=== PATIENT | female | born 1970 | race Caucasian/White ===

== ENCOUNTER 2020-07-01 13:05 | Emergency (ER) | payer MEDICAID, SELFPAY ==
--- NOTE | ~2020-07-01 | XR_ITS ---
EXAMINATION: XR CHEST CLINICAL INFORMATION: Coughing up green phlegm COMPARISON: Chest 06/01/2013 TECHNIQUE: Frontal view of the chest was obtained. FINDINGS: No significant abnormality is noted involving the heart, lungs, mediastinum, bony thorax or soft tissues. XR/XR chest 1V IMPRESSION: Unremarkable chest examination.
[2020-07-01 13:15] VITALS: BP 171/88; PULSE 85; RESP 17; TEMP 36.6; O2SAT 97; BMI 27.3
--- NOTE | 2020-07-01 13:44 | ED.GENADULT ---
HPI - General Adult General Chief complaint: General Medical Stated complaint: congested, hot flashes Time Seen by Provider: 07/01/20 15:13 Source: patient Mode of arrival: ambulatory Limitations: no limitations History of Present Illness HPI narrative: Patient presents to ED for 3 days of coughing with green phlegm and hot and cold sensation flashes. Patient denies any chest pain or shortness of breath. Patient denies any swelling of lower extremities, calf pain, coughing up blood, recent long travel, or recent surgery. Related Data Previous Rx's Medication Instructions Recorded azithromycin See Rx Instructions .ROUTE 07/01/20 .COMPLEX #6 tab Allergies Allergy/AdvReac Type Severity Reaction Status Date / Time acetaminophen [From VICODIN] Allergy Severe TRIGGERS Unverified 11/30/19 17:50 MIGRAINES & UPSET STOMACH hydrocodone [From VICODIN] Allergy Severe TRIGGERS Unverified 11/30/19 17:50 MIGRAINES & UPSET STOMACH oxycodone [From PERCOCET] Allergy Intermediate ITCHING Unverified 11/30/19 17:50 Hydrocodone-Ibuprofen Allergy Unknown Uncoded 04/29/16 00:00 Vicodin Allergy Unknown Uncoded 06/28/19 00:00 Review of Systems Review of Systems: Yes all other systems are reviewed and are negative Constitutional: Constitutional: Reports as per HPI, Reports no additional constitutional complaints and Denies snoring Comments: Hot and cold flashes Eyes: Eyes: Reports as per HPI and Reports no additional eye complaints ENT: Reports system reviewed and no additional complaints, except as documented and Reports as per HPI Cardiovascular: Cardiovascular: Reports as per HPI, Reports no additional cardiovascular complaints and Denies dyspnea Respiratory: Respiratory: Reports as per HPI, Reports no additional respiratory complaints, Reports cough, Denies excessive phlegm production, Denies pain on inspiration, Denies dyspnea, Denies snoring and Denies wheezing Gastrointestinal: Gastrointestinal: Reports as per HPI and Reports no additional gastrointestinal complaints Genitourinary: Genitourinary: Reports no additional female genitourinary complaints and Reports as per HPI Musculoskeletal: Musculoskeletal: Reports no additional musculoskeletal complaints and Reports as per HPI Neurologic: Reports system reviewed and no additional complaints, except as documented and Reports as per HPI Psychiatric: Psychiatric: Reports no additional psychiatric complaints and Reports as per HPI Allergic/Immunologic: Allergic/Immunologic: Denies wheezing PMFSH Past Medical History Medical History (Updated 07/01/20 @ 15:31 by ALEXANDRA Ayoub) COPD (chronic obstructive pulmonary disease) Social History Social History Alcohol intake: never Smoking Status: Never smoker Use of substances other than those prescribed or required for medical reasons: No Advance Directives: No Advance Directives Information Provided: Yes Physical Exam Vital Signs: Vital Signs: Last Vital Signs Temp 98 F 07/01/20 13:15 Pulse 86 07/01/20 14:40 Resp 17 07/01/20 13:15 BP 171/88 H 07/01/20 13:15 Pulse Ox 97 07/01/20 13:15 Body Mass Index 27.3 Const: General: cooperative, healthy appearing, comfortable, no acute distress, well developed, alert, awake and Physically active Orientation/consciousness: patient oriented x3 HENMT: Head: Yes normal to inspection, Yes No palpable skull fracture present, Yes normocephalic, Yes atraumatic, No abrasion, No Gallagher's sign, No contusion, No cranial bruits, No hematoma, No laceration, No occipital foramen tenderness, No palpable skull fracture, No raccoon eyes, No scalp lesion, No scalp tenderness, No Temporal artery tenderness present and No periorbital ecchymosis Throat: Yes posterior oropharynx normal, Yes tonsils normal and Yes uvula midline Eyes: General: appearance normal, both eyes and all related structures Neck: Neck: Yes normal visual inspection, Yes full ROM, Yes no lymphadenopathy, Yes no meningeal signs, Yes trachea midline, Yes supple and No tender Chest: Chest palpation & inspection: normal inspection of the chest and normal palpation of entire chest wall Resp: Effort & Inspection: normal respiratory effort and able to speak in complete sentences Auscultation: clear to auscultation bilaterally Cardio: Jugular venous distension: no JVD Heart sounds: S1 normal heart sound present and S2 normal heart sound present GI: Inspection: Yes normal to inspection and No abdominal wall ecchymosis Palpation (GI): Soft to palpation, not firm, nontender, no guarding and not rigid : General: No CVA tenderness and Yes no CVA tenderness Back/Spine/Pelvis: Back: no CVA tenderness, No CVA tenderness and No back tenderness Skin: General skin exam: no rashes or lesions noted Neuro: General: patient oriented x3, no meningeal signs and CN's II-XI intact bilaterally Cranial nerves: Yes CN's II-XII intact bilaterally Extrem: Other: Lower extremity negative for swelling, pitting edema, calf tenderness General: Yes normal to inspection and Yes full ROM Psych: Appearance: grossly normal, well kempt and not disheveled Course Course Course Narrative: History physical exam indicate URI/bronchitis. Was sent for chest x-ray and a COVID swab. We will do basic labs include EKG Reevaluation(s) Reevaluation #1: Patient EKG negative for STEMI. Troponin negative. Patient states feel better after receiving albuterol inhaler. Chest x-ray negative for pneumonia. COVID swab negative. Not suspecting PE. Patient denies any chest pain, chest pain on inspiration, swelling of lower extremity, calf pain, coughing up blood, recent long travel, recent surgery, or control use. Perc score 0 Patient informed to continue taking albuterol inhaler she was given by nurse and will be prescribed azithromycin. Patient has known history of high blood pressure. Patient states presently diet control for blas blood pressure. Patient informed to follow-up with PCP in terms of her blood pressure. Medical Decision Making MDM Narrative Medical decision making narrative: Bronchitis Lab Data Result diagrams: 07/01/20 14:10 07/01/20 14:09 Labs: Lab Results 07/01/20 07/01/20 07/01/20 Range/Units 14:09 14:09 14:09 WBC (4.8-10.8) X10*3/uL RBC (4.20-5.50) X10*6/uL Hgb (12.0-16.0) g/dl Hct (37-47) % MCV (80-98) fL MCH (27.0-33.0) pg MCHC (31.0-35.0) g/dl RDW (11.0-16.0) % Plt Count (160-400) X10*3/uL MPV (9.4-12.3) fL Immature Gran % (Auto) (0.0-0.4) % Neut % (Auto) (45-73) % Lymph % (Auto) (20-40) % [place] % (Auto) (2-11) % Eos % (Auto) (0-4) % Baso % (Auto) (0-2) % Lymph # (Auto) (1.2-4.9) X10*3/uL [place] # (Auto) (0.1-1.2) X10*3/uL Eos # (Auto) (0.0-0.4) X10*3/uL Baso # (Auto) (0.0-0.2) X10*3/uL Abs Immat Gran (auto) (0.00-0.03) X10*3/uL Absolute Neuts (auto) (2.0-8.3) X10*3/uL Absolute Nucleated RBC (0.0-0.012) X10*3/uL Nucleated RBC % (auto) (0.0-0.2) /100WBC PT (10.8-13.0) SEC INR (0.9-1.1) APTT (24.1-38.0) SEC Sodium 141 (135-145) mmol/L Potassium 4.1 (3.3-5.1) mmol/L Chloride 106 (96-108) mmol/L Carbon Dioxide 23 (22-29) mmol/L Anion Gap 16 (12-20) BUN 9 (9-16) mg/dL Creatinine 0.69 (0.5-1.4) mg/dL Estim Creat Clear Calc 87.5 Estimated GFR > 60 Random Glucose 100 (60-115) mg/dL Calcium 9.4 (8.4-10.2) mg/dL Total Bilirubin 0.2 (0.0-1.0) mg/dL AST 12 (5-31) U/L ALT 11 (0-31) U/L Alkaline Phosphatase 72 (39-117) U/L Troponin I High Sens < 3.5 (<3.5-17.0) ng/L B-Natriuretic Peptide 20 (<100) pg/mL Total Protein 7.4 (6.5-8.0) g/dL Albumin 4.7 (3.5-5.0) g/dL COVID-19 ([facility]) Negative (Negative) COVID-19 Clin Com See Note 07/01/20 07/01/20 Range/Units 14:10 14:10 WBC 6.7 (4.8-10.8) X10*3/uL RBC 5.10 (4.20-5.50) X10*6/uL Hgb 15.1 (12.0-16.0) g/dl Hct 46.4 (37-47) % MCV 91.0 (80-98) fL MCH 29.6 (27.0-33.0) pg MCHC 32.5 (31.0-35.0) g/dl RDW 13.8 (11.0-16.0) % Plt Count 310 (160-400) X10*3/uL MPV 10.2 (9.4-12.3) fL Immature Gran % (Auto) 0.1 (0.0-0.4) % Neut % (Auto) 68.4 (45-73) % Lymph % (Auto) 19.4 L (20-40) % [place] % (Auto) 8.0 (2-11) % Eos % (Auto) 2.8 (0-4) % Baso % (Auto) 1.3 (0-2) % Lymph # (Auto) 1.3 (1.2-4.9) X10*3/uL [place] # (Auto) 0.5 (0.1-1.2) X10*3/uL Eos # (Auto) 0.2 (0.0-0.4) X10*3/uL Baso # (Auto) 0.1 (0.0-0.2) X10*3/uL Abs Immat Gran (auto) 0.01 (0.00-0.03) X10*3/uL Absolute Neuts (auto) 4.6 (2.0-8.3) X10*3/uL Absolute Nucleated RBC 0.000 (0.0-0.012) X10*3/uL Nucleated RBC % (auto) 0.0 (0.0-0.2) /100WBC PT 12.1 (10.8-13.0) SEC INR 1.0 (0.9-1.1) APTT 42.4 H (24.1-38.0) SEC Sodium (135-145) mmol/L Potassium (3.3-5.1) mmol/L Chloride (96-108) mmol/L Carbon Dioxide (22-29) mmol/L Anion Gap (12-20) BUN (9-16) mg/dL Creatinine (0.5-1.4) mg/dL Estim Creat Clear Calc Estimated GFR Random Glucose (60-115) mg/dL Calcium (8.4-10.2) mg/dL Total Bilirubin (0.0-1.0) mg/dL AST (5-31) U/L ALT (0-31) U/L Alkaline Phosphatase (39-117) U/L Troponin I High Sens (<3.5-17.0) ng/L B-Natriuretic Peptide (<100) pg/mL Total Protein (6.5-8.0) g/dL Albumin (3.5-5.0) g/dL COVID-19 ([facility]) (Negative) COVID-19 Clin Com ECG Data Interpretation: Normal sinus rhythm. Reticular recently 5. Clearance of 138. QRS 80. QTC 435. Negative STEMI. Discharge Plan Discharge Clinical Impression: Bronchitis Patient Disposition: Home, Self-Care Instructions: Acute Bronchitis (ED) Additional Instructions: Return to the ED immediately for any chest pain, shortness of breath, swelling of lower extremities, coughing up blood, fever, chills, calf pain, weakness, or any other concerning symptoms. Please use the albuterol inhaler given to you by respiratory therapist/nurse. Recommend 2 puffs q.4-6 hours as needed Prescriptions: New azithromycin 500 mg tablet See Rx Instructions .ROUTE .COMPLEX Qty: 6 RF: 0 Referrals: Doug Cardona MD [Primary Care Provider] - 2 days (Bronchitis) Interventions: ED Discharge Assessment Last Done: 07/01/20 15:54 Discharge Date/Time: 07/01/20 15:55 Print Language: [place]an
[2020-07-01 14:17] LABS: MANUAL DIFF FLAG NO
[2020-07-01 14:18] LABS: Basophils Absolute Auto 0.1 X10*3/uL (0.0-0.2); Basophils Percent Auto 1.3 % (0-2); Eosinophils Absolute Auto 0.2 X10*3/uL (0.0-0.4); Eosinophils Percent Auto 2.8 % (0-4); Hematocrit 46.4 % (37-47); Hemoglobin 15.1 g/dl (12.0-16.0); Imm Gran Abs Auto 0.01 X10*3/uL (0.00-0.03); Imm Gran Pct Auto 0.1 % (0.0-0.4); Lymphocytes Absolute Auto 1.3 X10*3/uL (1.2-4.9); Lymphocytes Percent Auto 19.4 % (20-40); Mean Corpuscular HGB Conc 32.5 g/dl (31.0-35.0); Mean Corpuscular Hemoglobin 29.6 pg (27.0-33.0); Mean Platelet Volume 10.2 fL (9.4-12.3); Monocytes Absolute Auto 0.5 X10*3/uL (0.1-1.2); Neutrophils Absolute Auto 4.6 X10*3/uL (2.0-8.3); Neutrophils Percent Auto 68.4 % (45-73); Platelet Count 310 X10*3/uL (160-400); Red Cell Distribution Width 13.8 % (11.0-16.0); White Blood Count 6.7 X10*3/uL (4.8-10.8)
[2020-07-01 14:31] LABS: Prothrombin Time 12.1 SEC (10.8-13.0)
[2020-07-01] MEDS: Albuterol Sulfate 90 MCG 8 GM INHALER 4 PUFF INHALE (14:39)
[2020-07-01 14:40] VITALS: PULSE 86; O2SAT 95
[2020-07-01 14:42] LABS: Alanine Aminotransferase 11 U/L (0-31); Albumin Level 4.7 g/dL (3.5-5.0); Alkaline Phosphatase 72 U/L (39-117); Anion Gap 16 (12-20); Aspartate Amino Transferase 12 U/L (5-31); Bilirubin Total 0.2 mg/dL (0.0-1.0); Blood Urea Nitrogen 9 mg/dL (9-16); Calcium 9.4 mg/dL (8.4-10.2); Carbon Dioxide 23 mmol/L (22-29); Chloride 106 mmol/L (96-108); Creatinine Clr Calc Pharmacy 87.5; Estimated Glomerular Filt Rate > 60; Glucose Random 100 mg/dL (60-115); Potassium 4.1 mmol/L (3.3-5.1); Sodium 141 mmol/L (135-145); Total Protein 7.4 g/dL (6.5-8.0)
[2020-07-01 14:49] LABS: B Type Natriuretic Peptide 20 pg/mL (<100); Troponin-I High Sensitivity < 3.5 ng/L (<3.5-17.0)
--- NOTE | 2020-07-01 14:49 | ECG_ITS ---
Test Reason : DYSPNEA Blood Pressure : / mmHG Vent. Rate : 075 BPM Atrial Rate : 075 BPM P-R Int : 138 ms QRS Dur : 080 ms QT Int : 390 ms P-R-T Axes : 052 054 005 degrees QTc Int : 435 ms Normal sinus rhythm T wave abnormality, consider inferior ischemia Abnormal ECG No previous ECGs available Referred By: Dutch Balderas Electronically Signed By:Vish Bella
[2020-07-01 14:53] LABS: Partial Thromboplastin Time 42.4 SEC (24.1-38.0)
[2020-07-01 15:10] LABS: COVID-19 Test Negative (Negative); IDNOW Serial# 9DD0AD1C
== END 2020-07-01 15:55 | disposition home or self-care (01) ==
PROVIDERS: Physician Assistant; Emergency Provider Emergency Medicine; PCP Internal Medicine
DX: J20.9 Acute bronchitis, unspecified (principal); R05 Cough; Z20.822 Contact with and (suspected) exposure to COVID-19; Z79.899 Other long term (current) drug therapy
CPT/HCPCS: 36415; 71045; 80053; 83880; 84484; 85025; 85610; 85730; 87635; 93005; 94640; 94664; 99283; 99284

== ENCOUNTER 2020-09-13 08:21 | Outpatient (REF) | payer MEDICAID, SELFPAY ==
--- NOTE | 2020-09-13 | PFT_ITS ---
Forced vital capacity, FEV1, FLE22-44, and MVV are all moderately reduced. Post bronchodilator therapy, there is slight improvement in [id number]. Total lung capacity is normal and residual volume is also normal. Diffusion capacity normal. CONCLUSION: A very mild degree of obstructive airway disorder is noted. There is minimal improvement after bronchodilator therapy, especially in the small airways. Clinical correlation is recommended. MD CORWIN Hughes/MICHAEL / [id number]
== END 2020-09-13 08:22 | disposition home or self-care (01) ==
LOC: HO.RESP 08:21
PROVIDERS: PCP Internal Medicine; Visit Provider Internal Medicine
DX: J40 Bronchitis, not specified as acute or chronic (principal); F17.220 Nicotine dependence, chewing tobacco, uncomplicated
CPT/HCPCS: 94060; 94727; 94729

== ENCOUNTER 2021-05-24 23:18 | Emergency (ER) | payer MEDICAID, SELFPAY ==
--- NOTE | ~2021-05-24 | CT_ITS ---
EXAMINATION: CT ABDOMEN AND PELVIS WITHOUT CONTRAST CLINICAL INFORMATION: Right flank pain COMPARISON: None TECHNIQUE: Multidetector volumetric imaging was performed from the superior aspect of the liver through the pubic symphysis. Sagittal and coronal reformatted images were obtained on the technologist's workstation. This CT examination was performed using dose optimization techniques as appropriate, variously including the following: *Automated exposure control *Adjustment of mA and/or kV according to patient size (this includes techniques or standardized protocols for targeted exams where dose is matched to indication/reason for exam; i.e. extremities or head) *Use of iterative reconstruction technique DLP: 441 mGy-cm FINDINGS: LUNG BASES: Mild emphysema noted especially in the right middle lobe. LIVER, GALLBLADDER, AND BILIARY TREE: The liver is normal in size, shape, and attenuation. No focal hepatic lesion or biliary ductal dilatation is identified. The gallbladder is unremarkable with no evidence of radiopaque gallstones, gallbladder wall thickening, or obvious pericholecystic inflammatory changes. PANCREAS: Unremarkable. SPLEEN: Unremarkable. ADRENAL GLANDS: Unremarkable. KIDNEYS AND URETERS: There is a 3 mm calculus at the right ureterovesicular junction with mild to moderate hydroureteronephrosis and perinephric stranding. A couple additional punctate calculi are present in the right kidney. No left-sided hydronephrosis or obstructing calculus. BLADDER: Partially distended with mild mural prominence. GASTROINTESTINAL TRACT: Assessment for wall thickening in some segments of the colon is limited due to luminal collapse, though no significant pericolonic stranding is seen to strongly suggest a colitis. No evidence of bowel obstruction. The appendix is unremarkable. No free fluid or free air is seen. ABDOMINAL WALL: No significant hernia is appreciated. LYMPH NODES: No lymphadenopathy is seen, though assessment is limited in the absence of intravenous contrast. VASCULAR: There is mild atherosclerotic calcification. PELVIC VISCERA: Unremarkable. OSSEOUS STRUCTURES: Unremarkable. CT/CT abdomen pelvis wo con IMPRESSION: 1. Right ureterovesicular junction calculus measuring 3 mm with mild to moderate hydroureteronephrosis and perinephric stranding. 2. Mild mural prominence of the urinary bladder which may be due to incomplete distention versus cystitis in the proper clinical setting. Fleischner guidelines were followed.
[2021-05-24 23:24] VITALS: BP 132/92; PULSE 64; O2SAT 99
[2021-05-24 23:32] VITALS: BP 138/62; PULSE 61; RESP 16; TEMP 37.4; O2SAT 100; BMI 27.4
--- NOTE | 2021-05-24 23:58 | ED.ABDPAIN ---
HPI - Abdominal Pain General Chief Complaint: Abdominal Pain Stated Complaint: Rt Side Abd Pain Time Seen by Provider: 05/24/21 23:50 History of Present Illness HPI narrative: Patient is a 50-year-old female presented today with having flank pain in the right flank area radiating to the right lower quadrant. The pain is sharp in nature. Patient complaining of some mild nausea associated with it. No diaphoresis. Patient is from home. No coughing no congestion or upper respiratory symptoms. No change in bowel movement. Positive increasing frequency. Pain is been ongoing for few days. Patient never had a kidney stone in the past. Had a history of uterine ablation in the past. Related Data Previous Rx's Medication Instructions Recorded azithromycin 500 mg tablet See Rx Instructions .ROUTE 07/01/20 .COMPLEX #6 tab ibuprofen 400 mg tablet 400 mg PO Q6H PRN #20 tab 05/25/21 ondansetron 4 mg disintegrating 4 mg PO TID PRN 5 Days #10 tab 05/25/21 tablet tamsulosin 0.4 mg capsule (Flomax) 0.4 mg PO DAILY #7 cap 05/25/21 Allergies Allergy/AdvReac Type Severity Reaction Status Date / Time acetaminophen [From VICODIN] Allergy Severe TRIGGERS Unverified 11/30/19 17:50 MIGRAINES & UPSET STOMACH hydrocodone [From VICODIN] Allergy Severe TRIGGERS Unverified 11/30/19 17:50 MIGRAINES & UPSET STOMACH oxycodone [From PERCOCET] Allergy Intermediate ITCHING Unverified 11/30/19 17:50 Hydrocodone-Ibuprofen Allergy Unknown Uncoded 04/29/16 00:00 Vicodin Allergy Unknown Uncoded 06/28/19 00:00 Review of Systems Review of Systems no fever no chills no cough no congestion positive abdominal pain positive generalized malaise Yes all other systems are reviewed and are negative PMFSH Past Medical History Attestation statement: The following information was validated with the patient. Medical History COPD (chronic obstructive pulmonary disease) Social History Social History Alcohol intake: never Advance Directives: No Physical Exam ED Vital Signs: Vital Signs - 24 hr 05/24/21 23:32 05/25/21 00:37 Temperature 99.3 F Pulse Rate 61 59 Respiratory Rate 16 19 Blood Pressure 138/62 134/56 L Pulse Oximetry 100 95 BMI result Body Mass Index 27.4 Appearance: Alert. Oriented X3. No acute distress. Eyes: Pupils equal, round and reactive to light. ENT: Pharynx normal. Neck: Normal inspection. Neck supple. No lymph nodes noted. No crepitus CVS: Normal heart rate and rhythm. Pulses normal. Normal S1 and S2 Respiratory: No respiratory distress. Breath sounds normal. No Wheezing. No rales Abdomen: Soft and nontender. No rigidity. No distention. good BS x4 Skin: Skin warm and dry. Normal skin color. Normal skin turgor. Extremities: No lower extremity edema. Neurovascular intact to all extremities. No Lacerations. No Rash Neuro: Oriented X 3. No motor deficit. No sensory deficit. Moving all extermities. No slurred speech MDM - Abdominal Pain MDM Narrative Medical decision making narrative: Patient's creatinine is normal. Pain is controlled. CT scan of the abdomen showed a right-sided UVJ stone. Likely the cause of patient's pain. Urine is still pending. If it is negative for infection will discharge patient home follow up with Urology on an outpatient basis. Medical Records Attestation: I reviewed the patient's medical records. Lab Data Attestation: I reviewed the patient's lab results. Result diagrams: 05/25/21 00:41 05/25/21 00:41 Labs: Lab Results 05/25/21 05/25/21 Range/Units 00:41 00:41 WBC 17.2 H (4.8-10.8) X10*3/uL RBC 4.63 (4.20-5.50) X10*6/uL Hgb 13.8 (12.0-16.0) g/dl Hct 42.9 (37.0-47.0) % MCV 92.7 (80.0-98.0) fL MCH 29.8 (27.0-33.0) pg MCHC 32.2 (31.0-35.0) g/dl RDW 14.5 (11.0-16.0) % Plt Count 342 (160-400) X10*3/uL MPV 10.8 (9.4-12.3) fL Immature Gran % (Auto) 0.3 (0.0-0.4) % Neut % (Auto) 87.8 H (45-73) % Lymph % (Auto) 7.1 L (20-40) % [place] % (Auto) 3.7 (2-11) % Eos % (Auto) 0.7 (0-4) % Baso % (Auto) 0.4 (0-2) % Lymph # (Auto) 1.2 (1.2-4.9) X10*3/uL [place] # (Auto) 0.6 (0.1-1.2) X10*3/uL Eos # (Auto) 0.1 (0.0-0.4) X10*3/uL Baso # (Auto) 0.1 (0.0-0.2) X10*3/uL Abs Immat Gran (auto) 0.05 H (0.00-0.03) X10*3/uL Absolute Neuts (auto) 15.1 H (2.0-8.3) x10*3/uL Absolute Nucleated RBC 0.000 (0.0-0.012) X10*3/uL Nucleated RBC % (auto) 0.0 (0.0-0.2) /100WBC Sodium 141 (135-145) mmol/L Potassium 4.2 (3.3-5.1) mmol/L Chloride 104 (96-108) mmol/L Carbon Dioxide 22 (22-29) mmol/L Anion Gap 19 (12-20) BUN 14 (9-16) mg/dL Creatinine 0.82 (0.5-1.4) mg/dL Estim Creat Clear Calc 70.0 Estimated GFR > 60 Random Glucose 159 H (60-115) mg/dL Calcium 9.9 (8.4-10.2) mg/dL Lipase 22 (8-78) U/L Discharge Plan Discharge Clinical Impression: Calculus of kidney Patient Disposition: Home, Self-Care Instructions: Kidney Stones (ED) Prescriptions: New tamsulosin [Flomax] 0.4 mg capsule 0.4 mg PO DAILY Qty: 7 0RF ibuprofen 400 mg tablet 400 mg PO Q6H PRN (Reason: pain) Qty: 20 0RF ondansetron 4 mg tablet,disintegrating 4 mg PO TID PRN (Reason: nausea and vomiting) 5 Days Qty: 10 0RF No Action azithromycin 500 mg tablet See Rx Instructions .ROUTE .COMPLEX Qty: 6 0RF Rx Instructions: take 500 mg today (day 1), then 250 mg for 4 days (days 2-5) Referrals: Mazin Jamison MD [Physician] - 2 days
[2021-05-25] MEDS: ondansetron HCL 4 MG/2 ML VIAL IVPUSH (00:10)
[2021-05-25] MEDS: Morphine Sulfate 4 MG/ML CARTRIDGE IVPUSH (00:10)
[2021-05-25] MEDS: 0.9 % Sodium Chloride 1,000 ML 999 ML IV (00:10)
[2021-05-25] MEDS: Ketorolac Tromethamine 30 MG/ML VIAL IVPUSH (00:10)
[2021-05-25] MEDS: diphenhydrAMINE HCL 50 MG/ML VIAL 25 MG IVPUSH (00:22)
[2021-05-25 00:37] VITALS: BP 134/56; PULSE 59; RESP 19; O2SAT 95
[2021-05-25 00:45] LABS: Basophils Absolute Auto 0.1 X10*3/uL (0.0-0.2); Basophils Percent Auto 0.4 % (0-2); Eosinophils Absolute Auto 0.1 X10*3/uL (0.0-0.4); Eosinophils Percent Auto 0.7 % (0-4); Hematocrit 42.9 % (37.0-47.0); Hemoglobin 13.8 g/dl (12.0-16.0); Imm Gran Abs Auto 0.05 X10*3/uL (0.00-0.03); Imm Gran Pct Auto 0.3 % (0.0-0.4); Lymphocytes Absolute Auto 1.2 X10*3/uL (1.2-4.9); Lymphocytes Percent Auto 7.1 % (20-40); MANUAL DIFF FLAG NO; Mean Corpuscular HGB Conc 32.2 g/dl (31.0-35.0); Mean Corpuscular Hemoglobin 29.8 pg (27.0-33.0); Mean Corpuscular Volume 92.7 fL (80.0-98.0); Mean Platelet Volume 10.8 fL (9.4-12.3); Monocytes Absolute Auto 0.6 X10*3/uL (0.1-1.2); Monocytes Percent Auto 3.7 % (2-11); Neutrophils Absolute Auto 15.1 x10*3/uL (2.0-8.3); Neutrophils Percent Auto 87.8 % (45-73); Platelet Count 342 X10*3/uL (160-400); Red Blood Count 4.63 X10*6/uL (4.20-5.50); Red Cell Distribution Width 14.5 % (11.0-16.0); White Blood Count 17.2 X10*3/uL (4.8-10.8)
[2021-05-25 01:00] LABS: Anion Gap 19 (12-20); Blood Urea Nitrogen 14 mg/dL (9-16); Calcium 9.9 mg/dL (8.4-10.2); Carbon Dioxide 22 mmol/L (22-29); Chloride 104 mmol/L (96-108); Estimated Glomerular Filt Rate > 60; Glucose Random 159 mg/dL (60-115); Lipase 22 U/L (8-78); Potassium 4.2 mmol/L (3.3-5.1); Sodium 141 mmol/L (135-145)
[2021-05-25 01:45] LABS: Appearance Urine HAZY; Color Urine YELLOW; Glucose Urine UA NEG (NEG); Leukocyte Esterase Urine NEG (NEG); Nitrite Urine NEG (NEG); Specific Gravity - Urine 1.025 (1.005-1.025); UACC Culture Trigger NO; Urine Blood 3+ (NEG); Urine Ketones 15 MG/DL (NEG); Urine Protein NEG (NEG-TRACE)
[2021-05-25 01:52] LABS: Mucus Urine 1+ /LPF; Squamous Epithelial Cell Urine 1+ /LPF
[2021-05-25 01:53] LABS: WBC Urine 0 /HPF (0-4)
[2021-05-25 03:12] VITALS: BP 115/63; PULSE 67; RESP 16; O2SAT 97
== END 2021-05-25 03:27 | disposition home or self-care (01) ==
PROVIDERS: Emergency Provider Emergency Medicine Emergency Medical Services
DX: N13.2 Hydronephrosis with renal and ureteral calculous obstruction (principal)
CPT/HCPCS: 36415; 74176; 80048; 81001; 83690; 85025; 96361; 96374; 96375; 99284; J1200; J1885; J2270; J2405

== ENCOUNTER → 2021-06-17 15:18 | Outpatient (BNVA) | payer MEDICAID, SELFPAY | PROVIDERS: PCP Internal Medicine | DX: N20.0 Calculus of kidney (principal) | CPT/HCPCS: 99202 ==

== ENCOUNTER 2021-08-28 13:07 | Outpatient (REF) | payer MEDICAID, SELFPAY ==
--- NOTE | ~2021-08-28 | US_ITS ---
EXAMINATION: US RETROPERITONEAL LIMITED (RENAL ONLY) CLINICAL INFORMATION: Calculus of kidney. COMPARISON: CT abdomen and pelvis without contrast 05/24/2021. US retroperitoneal complete (renal) 09/28/2014. TECHNIQUE: Real-time imaging of the kidneys. FINDINGS: RIGHT KIDNEY: 10.1 x 4.0 x 4.8 cm (SAG x AP x TRV). The kidney is normal in size, contour, and echogenicity. Renal cortical thickness is normal. No focal parenchymal lesions or hydronephrosis. There is an echogenic upper pole stone measuring 0.4 x 0.4 cm. No additional stone seen. There is no caliectasis. There are a few scattered echogenic calcifications without twinkle artifact. LEFT KIDNEY: 10.0 x 4.8 x 4.9 cm (SAG x AP x TRV). The kidney is normal in size, contour, and echogenicity. Renal cortical thickness is normal. No focal parenchymal lesions or hydronephrosis. There is an echogenic stone in the midpole measuring 0.4 x 0.5 cm. No additional stone seen. There is no caliectasis. There are multiple punctate echogenic calcifications seen throughout. US/US renal BI IMPRESSION: Bilateral nonobstructive echogenic renal calculi. No hydronephrosis. Multiple echogenic calcifications. Punctate calcifications were seen in the right kidney on the previous CT abdomen exam 05/24/2021.
== END 2021-08-28 13:08 | disposition home or self-care (01) ==
LOC: HO.US 13:07
DX: N20.0 Calculus of kidney (principal)
CPT/HCPCS: 76775

== ENCOUNTER → 2021-09-18 14:02 | Outpatient (BNVA) | payer MEDICAID, SELFPAY | PROVIDERS: PCP Internal Medicine | DX: N20.0 Calculus of kidney (principal) | CPT/HCPCS: 99212 ==

== ENCOUNTER 2022-02-25 14:09 | Outpatient (REF) | payer MEDICAID, SELFPAY ==
--- NOTE | ~2022-02-25 | US_ITS ---
EXAMINATION: US RETROPERITONEAL LIMITED (RENAL ONLY) CLINICAL INFORMATION: Calculus of kidney. COMPARISON: Ultrasound retroperitoneal limited (renal only) 08/28/2021. CT abdomen and pelvis without contrast 05/24/2021. Renal ultrasound 09/28/2014. TECHNIQUE: Real-time imaging of the kidneys. FINDINGS: RIGHT KIDNEY: 10.2 x 4.6 x 4.8 cm (SAG x AP x TRV). The kidney is normal in size, contour, and echogenicity. Renal cortical thickness is normal. No calculi or focal parenchymal lesions. No hydronephrosis. LEFT KIDNEY: 10.6 x 5.1 x 5.5 cm (SAG x AP x TRV). The kidney is normal in size, contour, and echogenicity. Renal cortical thickness is normal. Small 2 x 3 mm stone in the midpole. No focal parenchymal lesions or hydronephrosis. US/US renal BI IMPRESSION: Small left renal stone. Previously identified right renal stone is not appreciated.
== END 2022-02-25 14:10 | disposition home or self-care (01) ==
LOC: HO.HMGCX 14:09
PROVIDERS: PCP Internal Medicine
DX: N20.0 Calculus of kidney (principal)
CPT/HCPCS: 76775

== ENCOUNTER 2022-10-12 17:30 | Emergency (ER) | payer MEDICAID, SELFPAY ==
--- NOTE | ~2022-10-12 | CT_ITS ---
EXAMINATION: CT ABDOMEN AND PELVIS WITHOUT CONTRAST CLINICAL INFORMATION: Right flank pain. COMPARISON: Renal ultrasound 02/25/2022. CT abdomen/pelvis 05/24/2021. TECHNIQUE: Multidetector volumetric imaging was performed from the superior aspect of the liver through the pubic symphysis. Sagittal and coronal reformatted images were obtained on the technologist's workstation. This CT examination was performed using dose optimization techniques as appropriate, variously including the following: *Automated exposure control *Adjustment of mA and/or kV according to patient size (this includes techniques or standardized protocols for targeted exams where dose is matched to indication/reason for exam; i.e. extremities or head) *Use of iterative reconstruction technique DLP: 497 mGy-cm FINDINGS: The lack of intravenous contrast limits evaluation of the solid visceral organs including the liver, spleen, pancreas, and kidneys. LUNG BASES: Nonspecific cystic changes in the right middle lobe, stable compared to 05/25/2021. No focal consolidation or pleural effusion. LIVER, GALLBLADDER, AND BILIARY TREE: The liver is normal in size, shape, and attenuation. No focal hepatic lesion or biliary ductal dilatation is present. The gallbladder is unremarkable with no evidence of radiopaque gallstones, gallbladder wall thickening, or obvious pericholecystic inflammatory changes. PANCREAS: Negative noncontrast examination. No significant peripancreatic fat stranding or free fluid. 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 No main ductal dilatation. SPLEEN: Unremarkable. ADRENAL GLANDS: Unremarkable. KIDNEYS AND URETERS: Mild to moderate right hydroureteronephrosis with a 0.4 cm calculus at the right ureterovesical junction versus already at the lumen of the urinary bladder, axial image 73 series 3. Punctate calculus in the upper pole of the left kidney, sagittal image 29 series 8. BLADDER: Very mild diffuse urinary bladder wall thickening. Adjacent to the above-described calculus, there is surrounding nonspecific focal hyperdensity, for instance sagittal image 52 series 8 measuring 1 cm in length. GASTROINTESTINAL TRACT: The stomach and the small bowel are nondilated. No significant inflammatory changes to suspect acute appendicitis, colitis or diverticulitis. No bowel obstruction. ABDOMINAL WALL: No significant hernia is appreciated. LYMPH NODES: No lymphadenopathy. VASCULAR: Normal caliber abdominal aorta. PELVIC VISCERA: Unremarkable. OSSEOUS STRUCTURES: Grade 1 anterolisthesis of L5 on S1 with associated vacuum disc phenomena. Degenerative changes of the spine. CT/CT abdomen pelvis wo IV con IMPRESSION: 1. Mild to moderate right hydroureteronephrosis with a 0.4 cm calculus at the right ureterovesical junction versus already at the lumen of the urinary bladder. 2. Adjacent to the above-described calculus, there is nonspecific focal hyperdensity in the urinary bladder wall. This is most likely reactive changes in the setting of recently passed calculus, however an underlying lesion/malignancy cannot be excluded. Follow-up wit urologic consultation and if indicated cystoscopy or interval imaging is recommended as clinically indicated. 3. Mild diffuse urinary bladder wall thickening, no significant change compared to 05/25/2021 that could be related with chronic cystitis, correlation with urinalysis could be obtained. 4. Punctate calculus in the upper pole of the left kidney. 5. Nonspecific cystic changes in the right middle lobe, stable compared to 05/25/2021. Follow-up with pulmonology consultation and if indicated high resolution chest CT could be obtained.
[2022-10-12 17:35] VITALS: BP 145/80; PULSE 92; RESP 18; TEMP 36.6; O2SAT 98; BMI 32.2
--- NOTE | 2022-10-12 17:39 | ED.GENADULT ---
HPI - General Adult General Chief complaint: Abdominal Pain Stated complaint: right side flank pain Time Seen by Provider: 10/12/22 20:36 Source: patient Mode of arrival: ambulatory History of Present Illness HPI narrative: 51-year-old female who has a history of renal colic presents with acute onset of right-sided flank pain with nausea and vomiting this started approximately 3 hours prior to arrival. Related Data Previous Rx's Medication Instructions Recorded azithromycin 500 mg tablet See Rx Instructions PO .COMPLEX #6 07/01/20 tabs ibuprofen 400 mg tablet 400 mg PO Q6H PRN pain #20 tabs 05/25/21 ondansetron 4 mg disintegrating 4 mg PO TID PRN nausea and 05/25/21 tablet vomiting 5 days #10 tabs tamsulosin 0.4 mg capsule (Flomax) 0.4 mg PO DAILY #7 caps 05/25/21 prednisone 20 mg tablet 20 mg PO DAILY 5 days #5 tabs 05/26/21 tamsulosin 0.4 mg capsule 0.4 mg PO DAILY 7 days #7 caps 05/26/21 Allergies Allergy/AdvReac Type Severity Reaction Status Date / Time acetaminophen [From VICODIN] Allergy Severe TRIGGERS Verified 09/18/21 14:24 MIGRAINES & UPSET STOMACH hydrocodone [From VICODIN] Allergy Severe TRIGGERS Verified 09/18/21 14:24 MIGRAINES & UPSET STOMACH oxycodone [From PERCOCET] Allergy Intermediate ITCHING Verified 09/18/21 14:24 Hydrocodone-Ibuprofen Allergy Unknown Unknown Uncoded 09/18/21 14:24 Vicodin Allergy Unknown Unknown Uncoded 09/18/21 14:24 Review of Systems Review of Systems: Pertinent positives and negatives as stated in HPI REPLACED BY [facility] Past Medical History Source: nursing notes reviewed Medical History Anemia Cervical dysplasia Constipation COPD (chronic obstructive pulmonary disease) HTN (hypertension) Migraine Perimenopausal Renal calculi Social History Social History Alcohol intake: never Smoked in Last 30 Days: Yes Use of substances other than those prescribed or required for medical reasons: Yes Substance Use Type: Marijuana Advance Directives: No Advance Directives Information Provided: No Physical Exam ED Vital Signs: Vital Signs - 24 hr 10/12/22 17:35 10/12/22 20:45 Temperature 97.9 F 97.1 F Pulse Rate 92 77 Respiratory Rate 18 18 Blood Pressure 145/80 H 179/81 H Pulse Oximetry 98 97 Oxygen Delivery Method Room Air BMI result Body Mass Index 32.2 VITAL SIGNS: Reviewed. GENERAL: Well developed, well nourished, in no acute distress. HEAD: Normocephalic/atraumatic EYES: PERRLA, EOMI EARS: Ext canals without abnormality NOSE: Nares patent bilateral OROPHARYNX: no oral lesions noted, posterior pharynx clear NECK: Supple, no adenopathy LUNGS: Normal breath sounds. No adventitious sounds or accessory muscle use. SpO2<97> CARDIOVASCULAR: Regular rate and rhythm without noted murmurs ABDOMEN: Soft, non-tender, non-distended with bowel sounds, no CVA tenderness. MUSCULOSKELETAL: No tenderness, deformities, or effusions noted on gross inspection. EXTREMITIES: No cyanosis, clubbing or edema. SKIN: Inspection of the skin reveals no rashes NEUROLOGIC: Alert and oriented x 4. Strength and sensation to light touch were grossly intact x 4. Course Course Course Narrative: This is an RME: Additional HPI, ROS, PE not included below will be deferred to primary provider. 51-year-old female presents with sudden-onset right flank and abdominal pain that started this morning with associated nausea and vomiting. History of kidney stones. Denies fevers, chills. Plan labs, urine, imaging Medical Decision Making Medical Decision Making MDM Narrative: 51 year old female with history and clinical presentation, DDX: Renal colic, UTI, pyelonephritis. I reviewed all investigations and hematologic indices are negative for leukocytosis, anemia, thrombocytopenia but there is a mild left shift. Chemistry indices are negative for electrolyte derangements, there is no NA and no liver enzyme abnormalities. Urinalysis in conjunction with history significant for evidence to suggest renal colic and on review of CT scan there is a stone at the UVJ but at the time of my interview patient has likely passed stone as she is completely asymptomatic at this time. I provided her with combination analgesics, she is tolerating oral intake and has had no further episodes of nausea vomiting and is otherwise discharged home in stable condition. My interpretation is patient had ureterolithiasis has resolved without NA her leukocytosis. Differential Diagnosis Differential Diagnoses: The differential diagnosis associated with the presentation includes Please see the discussion above Admission/Observation Consideration of admission/observation: Escalation of care including admission/observation considered Please see the discussion above Lab Data MDM Lab Attestation statement: I reviewed the patient's lab results. Please see discussion above 10/12/22 19:12 10/12/22 19:12 Labs: Lab Results 10/12/22 10/12/22 10/12/22 Range/Units 19:12 19:12 19:12 WBC 9.8 (4.8-10.8) X10*3/uL RBC 5.06 (4.20-5.50) X10*6/uL Hgb 15.2 (12.0-16.0) g/dl Hct 45.1 (37.0-47.0) % MCV 89.1 (80.0-98.0) fL MCH 30.0 (27.0-33.0) pg MCHC 33.7 (31.0-35.0) g/dl RDW 14.4 (11.0-16.0) % Plt Count 270 (160-400) X10*3/uL MPV 11.4 (9.4-12.3) fL Immature Gran % (Auto) 0.3 (0.0-0.4) % Neut % (Auto) 81.6 H (45-73) % Lymph % (Auto) 13.8 L (20-40) % [place] % (Auto) 3.4 (2-11) % Eos % (Auto) 0.3 (0-4) % Baso % (Auto) 0.6 (0-2) % Lymph # (Auto) 1.4 (1.2-4.9) X10*3/uL [place] # (Auto) 0.3 (0.1-1.2) X10*3/uL Eos # (Auto) 0.0 (0.0-0.4) X10*3/uL Baso # (Auto) 0.1 (0.0-0.2) X10*3/uL Abs Immat Gran (auto) 0.03 (0.00-0.03) X10*3/uL Absolute Neuts (auto) 8.0 (2.0-8.3) x10*3/uL Absolute Nucleated RBC 0.000 (0.0-0.012) X10*3/uL Nucleated RBC % (auto) 0.0 (0.0-0.2) /100WBC Sodium 143 (135-145) mmol/L Potassium 4.0 (3.3-5.1) mmol/L Chloride 109 H (96-108) mmol/L Carbon Dioxide 22 (22-29) mmol/L Anion Gap 16 (12-20) BUN 9 (9-16) mg/dL Creatinine 0.72 (0.5-1.4) mg/dL Estim Creat Clear Calc 85.3 Estimated GFR > 60 Random Glucose 117 H (60-115) mg/dL Calcium 9.9 (8.4-10.2) mg/dL Magnesium 2.2 (1.6-2.6) mg/dL Total Bilirubin 0.3 (0.0-1.0) mg/dL AST 12 (5-31) U/L ALT 11 (0-31) U/L Alkaline Phosphatase 91 (39-117) U/L Total Protein 7.7 (6.5-8.0) g/dL Albumin 4.7 (3.5-5.0) g/dL Beta HCG, Quant 4 mIU/mL Urine Color Urine Appearance Urine pH (5.0-9.0) Ur Specific [place] (1.005-1.025) Urine Protein (Neg-Trace) mg/dL Urine Glucose (UA) (Negative) mg/dL Urine Ketones (Negative) mg/dL Urine Blood (Negative) Urine Nitrite (Negative) Ur Leukocyte Esterase (Negative) Urine RBC (0-2) /HPF Urine WBC (0-5) /HPF Ur Squamous Epith Cells (0-2) /HPF Urine Bacteria (None Seen) Hyaline Casts (0-2) /LPF 10/12/22 Range/Units 19:12 WBC (4.8-10.8) X10*3/uL RBC (4.20-5.50) X10*6/uL Hgb (12.0-16.0) g/dl Hct (37.0-47.0) % MCV (80.0-98.0) fL MCH (27.0-33.0) pg MCHC (31.0-35.0) g/dl RDW (11.0-16.0) % Plt Count (160-400) X10*3/uL MPV (9.4-12.3) fL Immature Gran % (Auto) (0.0-0.4) % Neut % (Auto) (45-73) % Lymph % (Auto) (20-40) % [place] % (Auto) (2-11) % Eos % (Auto) (0-4) % Baso % (Auto) (0-2) % Lymph # (Auto) (1.2-4.9) X10*3/uL [place] # (Auto) (0.1-1.2) X10*3/uL Eos # (Auto) (0.0-0.4) X10*3/uL Baso # (Auto) (0.0-0.2) X10*3/uL Abs Immat Gran (auto) (0.00-0.03) X10*3/uL Absolute Neuts (auto) (2.0-8.3) x10*3/uL Absolute Nucleated RBC (0.0-0.012) X10*3/uL Nucleated RBC % (auto) (0.0-0.2) /100WBC Sodium (135-145) mmol/L Potassium (3.3-5.1) mmol/L Chloride (96-108) mmol/L Carbon Dioxide (22-29) mmol/L Anion Gap (12-20) BUN (9-16) mg/dL Creatinine (0.5-1.4) mg/dL Estim Creat Clear Calc Estimated GFR Random Glucose (60-115) mg/dL Calcium (8.4-10.2) mg/dL Magnesium (1.6-2.6) mg/dL Total Bilirubin (0.0-1.0) mg/dL AST (5-31) U/L ALT (0-31) U/L Alkaline Phosphatase (39-117) U/L Total Protein (6.5-8.0) g/dL Albumin (3.5-5.0) g/dL Beta HCG, Quant mIU/mL Urine Color Yellow Urine Appearance Clear Urine pH 6.0 (5.0-9.0) Ur Specific [place] 1.015 (1.005-1.025) Urine Protein Negative (Neg-Trace) mg/dL Urine Glucose (UA) Negative (Negative) mg/dL Urine Ketones Trace (Negative) mg/dL Urine Blood Large (3+) H (Negative) Urine Nitrite Negative (Negative) Ur Leukocyte Esterase Trace H (Negative) Urine RBC >20 H (0-2) /HPF Urine WBC 0-5 (0-5) /HPF Ur Squamous Epith Cells 0-2 (0-2) /HPF Urine Bacteria None Seen (None Seen) Hyaline Casts 0-2 (0-2) /LPF Radiology Impression Radiologist Impression: No appendicitis, positive ureterolithiasis otherwise my interpretation is in agreement with radiology's impression. External Record Review External record reviewed: Outpatient record and Prior outpatient labs Chronic Conditions COPD Discharge Plan Discharge Clinical Impression: Renal colic, Ureterolithiasis Patient Disposition: Home, Self-Care Instructions: Renal Colic (ED), Low Oxalate Diet (ED), Ureteral Stones (ED) Additional Instructions: 1. Tylenol 1000 mg, orally, every 6 hours as needed for pain control. Do not exceed 4000 mg within 24 hours. 2. Ibuprofen 400 mg, orally with milk or food, every 6 hours as needed for pain control. Increase the amount of water intake. 3. Please follow-up with your urologist. Return to the ER for any worsening symptoms. Prescriptions: No Action prednisone 20 mg tablet 20 mg PO DAILY 5 Days Qty: 5 0RF tamsulosin 0.4 mg capsule 0.4 mg PO DAILY 7 Days Qty: 7 0RF azithromycin 500 mg tablet See Rx Instructions .ROUTE .COMPLEX Qty: 6 0RF Rx Instructions: take 500 mg today (day 1), then 250 mg for 4 days (days 2-5) tamsulosin [Flomax] 0.4 mg capsule 0.4 mg PO DAILY Qty: 7 0RF ibuprofen 400 mg tablet 400 mg PO Q6H PRN (Reason: pain) Qty: 20 0RF ondansetron 4 mg tablet,disintegrating 4 mg PO TID PRN (Reason: nausea and vomiting) 5 Days Qty: 10 0RF Referrals: Doug Cardona MD [Primary Care Provider] -
[2022-10-12 19:22] LABS: MANUAL DIFF FLAG NO
[2022-10-12 19:25] LABS: Appearance Urine Clear; Color Urine Yellow; Glucose Urine UA Negative (Negative); Leukocyte Esterase Urine Trace (Negative); Nitrite Urine Negative (Negative); Specific Gravity - Urine 1.015 (1.005-1.025); UMIC TRIGGER UACC YES; Urine Blood Large (3+) (Negative); Urine Ketones Trace mg/dL (Negative); Urine Protein Negative (Neg-Trace)
[2022-10-12 19:30] LABS: Bacteria Urine None Seen (None Seen); Hyaline Casts Urine 0-2 /LPF (0-2); RBC Urine >20 /HPF (0-2); Squamous Epithelial Cell Urine 0-2 /HPF (0-2); WBC Urine 0-5 /HPF (0-5)
[2022-10-12 19:38] LABS: Alanine Aminotransferase 11 U/L (0-31); Albumin Level 4.7 g/dL (3.5-5.0); Alkaline Phosphatase 91 U/L (39-117); Anion Gap 16 (12-20); Aspartate Amino Transferase 12 U/L (5-31); Bilirubin Total 0.3 mg/dL (0.0-1.0); Blood Urea Nitrogen 9 mg/dL (9-16); Calcium 9.9 mg/dL (8.4-10.2); Carbon Dioxide 22 mmol/L (22-29); Chloride 109 mmol/L (96-108); Creatinine Clr Calc Pharmacy 85.3; Estimated Glomerular Filt Rate > 60; Glucose Random 117 mg/dL (60-115); Magnesium 2.2 mg/dL (1.6-2.6); Sodium 143 mmol/L (135-145); Total Protein 7.7 g/dL (6.5-8.0)
[2022-10-12 19:42] LABS: Basophils Absolute Auto 0.1 X10*3/uL (0.0-0.2); Basophils Percent Auto 0.6 % (0-2); Eosinophils Percent Auto 0.3 % (0-4); Hematocrit 45.1 % (37.0-47.0); Hemoglobin 15.2 g/dl (12.0-16.0); Imm Gran Abs Auto 0.03 X10*3/uL (0.00-0.03); Imm Gran Pct Auto 0.3 % (0.0-0.4); Lymphocytes Absolute Auto 1.4 X10*3/uL (1.2-4.9); Lymphocytes Percent Auto 13.8 % (20-40); Mean Corpuscular HGB Conc 33.7 g/dl (31.0-35.0); Mean Corpuscular Volume 89.1 fL (80.0-98.0); Mean Platelet Volume 11.4 fL (9.4-12.3); Monocytes Absolute Auto 0.3 X10*3/uL (0.1-1.2); Monocytes Percent Auto 3.4 % (2-11); Neutrophils Percent Auto 81.6 % (45-73); Platelet Count 270 X10*3/uL (160-400); Red Blood Count 5.06 X10*6/uL (4.20-5.50); Red Cell Distribution Width 14.4 % (11.0-16.0); White Blood Count 9.8 X10*3/uL (4.8-10.8)
[2022-10-12 19:44] LABS: HCG Quantitative 4 mIU/mL
[2022-10-12 20:45] VITALS: BP 179/81; PULSE 77; RESP 18; TEMP 36.2; O2SAT 97
[2022-10-12] MEDS: Ibuprofen 400 MG TABLET PO (21:16)
== END 2022-10-12 21:18 | disposition home or self-care (01) ==
PROVIDERS: Physician Assistant; Emergency Provider Student in an Organized Health Care Education/Training Program; PCP Internal Medicine
DX: N13.2 Hydronephrosis with renal and ureteral calculous obstruction (principal); R10.9 Unspecified abdominal pain; R11.2 Nausea with vomiting, unspecified; I10 Essential (primary) hypertension; D64.9 Anemia, unspecified; F12.90 Cannabis use, unspecified, uncomplicated
CPT/HCPCS: 36415; 74176; 80053; 81001; 83735; 84702; 85025; 99284

== ENCOUNTER 2022-11-05 14:29 | Outpatient (AMB) | payer MEDICAID, SELFPAY ==
--- NOTE | 2022-11-05 14:27 | MHC.OFFVIS ---
Intake Intake Visit Reasons: calculus of kidney Intake Note: Patient presents for follow up ureterolithiasis/renal colic (ER Imaging 10/12/22) Urology Medications: none Blood Thinner: none Booth Supervisor Required: No Accompanied by: Self / Same As Patient Allergies acetaminophen [From VICODIN] Allergy (Severe, Verified 11/05/22 15:52) TRIGGERS MIGRAINES & UPSET STOMACH hydrocodone [From VICODIN] Allergy (Severe, Verified 11/05/22 15:52) TRIGGERS MIGRAINES & UPSET STOMACH oxycodone [From PERCOCET] Allergy (Intermediate, Verified 11/05/22 15:52) ITCHING Hydrocodone-Ibuprofen Allergy (Unknown, Uncoded 11/05/22 15:52) Unknown Vicodin Allergy (Unknown, Uncoded 11/05/22 15:52) Unknown Medication List - Last Reconciled 11/05/22 by LASHA Silverio-PATRIZIA pyridoxine (vitamin B6) 100 mg PO DAILY 90 days sertraline 25 mg PO DAILY HPI HPI Comments History of Present Illness Details Magalis is a very pleaseant 52 year old [facility] female patient of Dr. Cardona. She has a past medical history of anemia, cervical dysplasia, constipation, COPD, hypertension, migraines, and renal calculi. She presents to the office today for a follow up of her nephrolthiasis. She discusses marlo 1 month ago seeking emergency room care for right sided flank pain at which time a CT was ordered for further assessment evaluation. These results were reviewed with the patient today. Mild to moderate right hydro ureteral nephrosis with 0.4 cm calculus at the right UVJ verses at the lumen of the urinary bladder. Punctate calculus in the upper pole of the left kidney. The bladder is very mild diffuse with bladder wall thickening. In discussion with the patient today she reports flank pain has since subsided approximately 1-2 days after her ER visit. She believes she passed her stone. When asked she reports to be attempting to drink plenty of fluid daily. She does endorse to drinking increased amounts of coffee throughout the day. When asked she denies urinary urgency, urinary frequency, incontinence, nocturia, hematuria, dysuria, foul smelling urine, changes to urinary stream, flank pain, fever, and or chills. She is happy with her current voiding parameters. In office urinalysis results reviewed with the patient today. She otherwise offers no other issues or concerns at this time. [facility] Medical History Anemia Cervical dysplasia Constipation COPD (chronic obstructive pulmonary disease) HTN (hypertension) Migraine Perimenopausal Renal calculi Social History Alcohol intake: never Substance Use Type: Marijuana Review of Systems Const Reports as per HPI Eyes Reports no additional complaints ENT Reports no additional complaints Card Reports as per HPI Resp Reports as per HPI GI Reports no additional complaints Reports as per HPI Musc Reports no additional complaints Neuro Reports as per HPI Psych Reports no additional complaints Endo Reports no additional complaints Narciso/Lymph Reports no additional complaints Aller/Immun Reports no additional complaints Physical Exam Const General: cooperative, comfortable, no acute distress, well developed, alert and awake Orientation/consciousness: patient oriented x3 Limitations: no limitations HEENT Head: Yes normal to inspection, Yes normocephalic and Yes atraumatic Ears: hearing grossly normal bilaterally Eyes General: appearance normal, both eyes and all related structures Neck Neck: Yes normal visual inspection and Yes trachea midline Chest Chest palpation & inspection: normal inspection of the chest Resp Effort & Inspection: normal respiratory effort and able to speak in complete sentences Cardio Rate: regular rate GI Inspection: Yes normal to inspection General: Yes no CVA tenderness Back/Spine/Pelvis Back: no CVA tenderness Skin General skin exam: no rashes or lesions noted Neuro General: patient oriented x3 Extrem General: Yes normal to inspection Psych Appearance: grossly normal and well kempt Mental Status: mental status grossly normal Speech and movement: Normal speech and movement present and Clear speech present Affect: normal affect Attitude: cooperative Thought process: Normal thought process present Thought content: Normal thought content present Insight: Fair insight present (Psych) Judgement: Fair judgement present (Psych) Results AMB Urinalysis, Automated UA Leukoctes 0 Tadeo/uL Last Edit by Errol Ritchie on 11/05/22 14:57 UA Nitrite Last Edit by Errol Ritchie on 11/05/22 14:57 UA Urobilinogen 0.2 mg/dL Last Edit by Errol Ritchie on 11/05/22 14:57 UA Protein 0 mg/dL Last Edit by Errol Ritchie on 11/05/22 14:57 UA pH 8.0 Last Edit by Errol Ritchie on 11/05/22 14:57 UA Blood 0 Adams/uL Last Edit by Errol Ritchie on 11/05/22 14:57 UA Specific [place] 1.015 Last Edit by Errol Ritchie on 11/05/22 14:57 UA Ketone Last Edit by Errol Ritchie on 11/05/22 14:57 UA Bilirubin 0 mg/dL Last Edit by Errol Ritchie on 11/05/22 14:57 UA Glucose 0 mg/dL Last Edit by Errol Ritchie on 11/05/22 14:57 Results Reviewed Results Reviewed: Laboratory Last Values Urine pH (Auto) 8.0 11/05/22 14:29 Specific [place] (Auto) 1.015 11/05/22 14:29 Urine Protein (Auto) 0 mg/dL 11/05/22 14:29 Glucose (UA)(Auto) 0 mg/dL 11/05/22 14:29 Urine Blood (Auto) 0 Adams/uL 11/05/22 14:29 Urine Bilirubin (Auto) 0 mg/dL 11/05/22 14:29 Urine Urobilinogen (Auto) 0.2 mg/dL 11/05/22 14:29 Leukocyte Esterase (Auto) 0 Tadeo/uL 11/05/22 14:29 Date of Service: 10/12/22 EXAMINATION: CT ABDOMEN AND PELVIS WITHOUT CONTRAST? FINDINGS: The lack of intravenous contrast limits evaluation of the solid visceral organs including the liver, spleen, pancreas, and kidneys. LUNG BASES: Nonspecific cystic changes in the right middle lobe, stable compared to 05/25/2021. No focal consolidation or pleural effusion.? LIVER, GALLBLADDER, AND BILIARY TREE: The liver is normal in size, shape, and attenuation. No focal hepatic lesion or biliary ductal dilatation is present. The gallbladder is unremarkable with no evidence of radiopaque gallstones, gallbladder wall thickening, or obvious pericholecystic inflammatory changes.? PANCREAS: Negative noncontrast examination. No significant peripancreatic fat stranding or free fluid. 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 No main ductal dilatation.? SPLEEN: Unremarkable.? ADRENAL GLANDS: Unremarkable.? KIDNEYS AND URETERS: Mild to moderate right hydroureteronephrosis with a 0.4 cm calculus at the right ureterovesical junction versus already at the lumen of the urinary bladder, axial image 73 series 3. Punctate calculus in the upper pole of the left kidney, sagittal image 29 series 8.? BLADDER: Very mild diffuse urinary bladder wall thickening. Adjacent to the above-described calculus, there is surrounding nonspecific focal hyperdensity, for instance sagittal image 52 series 8 measuring 1 cm in length.? GASTROINTESTINAL TRACT: The stomach and the small bowel are nondilated. No significant inflammatory changes to suspect acute appendicitis, colitis or diverticulitis. No bowel obstruction.? ABDOMINAL WALL: No significant hernia is appreciated.? LYMPH NODES: No lymphadenopathy. VASCULAR: Normal caliber abdominal aorta. PELVIC VISCERA: Unremarkable.? OSSEOUS STRUCTURES: Grade 1 anterolisthesis of L5 on S1 with associated vacuum disc phenomena. Degenerative changes of the spine.? IMPRESSION: 1.? Mild to moderate right hydroureteronephrosis with a 0.4 cm calculus at the right ureterovesical junction versus already at the lumen of the urinary bladder. 2.? Adjacent to the above-described calculus, there is nonspecific focal hyperdensity in the urinary bladder wall. This is most likely reactive changes in the setting of recently passed calculus, however an underlying lesion/malignancy cannot be excluded. Follow-up wit urologic consultation and if indicated cystoscopy or interval imaging is recommended as clinically indicated. 3.? Mild diffuse urinary bladder wall thickening, no significant change compared to 05/25/2021 that could be related with chronic cystitis, correlation with urinalysis could be obtained. 4.? Punctate calculus in the upper pole of the left kidney. 5.? Nonspecific cystic changes in the right middle lobe, stable compared to 05/25/2021. Follow-up with pulmonology consultation and if indicated high resolution chest CT could be obtained. Assessment & Plan Assessment & Plan (1) Renal calculi: Code(s): N20.0 - Calculus of kidney (2) Hydronephrosis: Code(s): N13.30 - Unspecified hydronephrosis Plan In office urinalysis results reviewed with the patient today. Patient reports right-sided flank pain has since subsided Recent CT results reviewed with the patient today. Will obtain retroperitoneal ultrasound for further assessment evaluation and to ensure resolution of hydronephrosis. Patient denies any bothersome a urinary issues or concerns at this time. Start vitamin B6 as discussed and prescribed. Educated, encouraged, instructed on the importance of drinking plenty of fluid daily. Discussed adding 1 oz of lemon juice to water daily. Follow-up in 1-2 months with imaging to be completed prior; or sooner with any issues, concerns, and or questions. Orders: Orders US retroperitoneal comp Today N13.30 - Unspecified hydronephrosis, N20.0 - Calculus of kidney AMB Urinalysis Automated Today Z13.9 - Encounter for screening, unspecified Medications: New pyridoxine (vitamin B6) 100 mg PO DAILY 90 days 90 tabs 1RF N13.2 - Hydronephrosis with renal and ureteral calculous obstruction Coding Level of Care Code Est Pt Level 4 (04642) Diagnoses Renal calculi N20.0 Hydronephrosis N13.30
== END 2022-11-05 15:13 | disposition home or self-care (01) ==
PROVIDERS: PCP Internal Medicine; Visit Provider Nurse Practitioner Family
DX: N20.0 Calculus of kidney (principal); N13.30 Unspecified hydronephrosis; Z13.9 Encounter for screening, unspecified
CPT/HCPCS: 99214

== ENCOUNTER → 2022-11-05 14:29 | Outpatient (BNVA) | payer MEDICAID, SELFPAY | PROVIDERS: PCP Internal Medicine; Visit Provider Nurse Practitioner Family | DX: N13.2 Hydronephrosis with renal and ureteral calculous obstruction (principal) | CPT/HCPCS: 81003; 99212; 99214 ==

== ENCOUNTER 2024-06-30 09:50 | Outpatient (REF) | payer MEDICAID, SELFPAY ==
--- OUTSIDE RECORDS SUMMARY | 2024-06-30 10:31 | XMS_ITS | Encounter Summary ---
Author Organization [employer] Address [address] [facility] 7t [place] [address] Care Team Providers Care Order Processor Name Role Phone Doug Cardona MD Primary Care Provider [phone]- [phone] Reason for Visit * Reason Onset Date Comments Nurse Triage 04/26/2024 Encounter Details Date Type Department Care Team ([facility] st Contact Info) Description 04/26/2024 Telephone [facility] [address] [place] [address] Doug Cardona MD [address] [place] [address] Nurse Triage Social History Tobacco Use Types Packs/Day Years Used Date Smoking Tobacco: Every Day Cigarettes 0.5 33 Alcohol Use Standard Drinks/Week Comments Defer 0 (1 standard drink = 0.6 oz pur e alcohol) Depression Answer Date Recorded Patient Health Questionnaire-9 Score 2 10/15/2022 Housing Stability Answer Date Recorded What is your housing situation today? I have manuel lincoln 01/10/[address] you li ve. Do you have problems with any of the following? None of the above 01/10/2023 Food Insecurity Answer Date Recorded Within the past 12 months, y ou worried that your food would run out before you got money to buy more: Never True 01/10/2023 Within the past 12 months,th e food you bought just didn't last and you didn't have enough money to get more: Never True Transportation Answer Date Recorded In the past 12 months, has l ack of transportation kept you from medical appts, meetings, work or from getting things needed for daily living? No 01/10/2023 Utilities Answer Date Recorded In the past 12 months, has t he electric, gas, oil or water company threatened to shut off services in your home? No 01/10/2023 Depression Answer Date Recorded Patient Health Questionnaire-2 Score 2 10/15/2022 Comments Unknown Sex and Gender Information Value Date Recorded Sex Assigned at Female 01/12/2022 10:18 AM EDT Legal Sex Female 10:18 AM EDT Gender Identity Female 01/12/2022 10:18 AM EDT Sexual Orientation Straight 01/12/2022 10 :18 AM EDT documented as of this encounter Miscellaneous Notes * Telephone Encounter - Jaymie Drew RN - 04/26/2024 10:59 AM EST Triage call Pt telephone is no longer in service. Pt has moved and requests calls come on listed home number . Pt reports right sided flank and low back pain. Pt reports a feeling of pressure and frequency when urinating. Pt has had hx of UTIs and kidney stones . Pt denies odor or burning with urination. Pt reports drinking adequate liquids especially cranberry juice which has helped to some degree. ASK apt with Dr. Barrera 400pm 04/27/24. Pt agrees with disposition. Unable toverify insurance due to computer error. Protocol Used: Urinary Symptoms (Adult) Protocol-Based Disposition: See in Office or Video Visit Today or Tomorrow Video visit not offered Positive Triage Question: * Patient wants to be seen * All higher-acuity triage questions were negative Care Advice Discussed: * Reasons To Call Back - Fever occurs - Pain or burning with urination - Unable to urinate and bladder feels full - You become worse * Telephone Encounter - Leo Day - 04/26/2024 10:27 AM EST Symptom: Back Pain - Not From Injury Outcome: Transfer to a nurse or provider NOW! Reason: Age over 30: sudden AND severe upper back pain documented in this encounter Plan of Treatment Upcoming Encounters Date Type Department Care Team (Late st Contact Info) Description 07/25/2024 10:40 AM EDT Procedure Visit [facility] [address] [place] [address] Ariadna Joy MD [address] [place] [address] documented as of this encounter Visit Diagnoses Not on filedocumented in this encounter Additional Health Concerns Assessment Noted Time PHQ-9 Depression Total Score: 2 10/16/19 23 10:18 AM EDT documented as of this encounter Care Teams Order Processor Relationship Specialty Start Date End Date Doug Cardona MD [address] [place] [address] PCP - General Internal Medicine 02/03/12 documented as of this encounter
--- OUTSIDE RECORDS SUMMARY | 2024-06-30 10:31 | XMS_ITS | Encounter Summary ---
Author Organization [employer] Address [address] [facility] 7t [place] [address] Care Team Providers Care Port Captain Name Role Phone Doug Cardona MD Primary Care Provider [phone] Encounter Details Date Type Department Care Team (Latest Contact Info) Description 06/29/2024 Travel Social History Tobacco Use Types Packs/Day Years Used Date Smoking Tobacco: Every Day Cigarettes 0.5 33 Alcohol Use Standard Drinks/Week Comments Defer 0 (1 standard drink = 0.6 oz pur e alcohol) Depression Answer Date Recorded Patient Health Questionnaire-9 Score 2 10/15/2022 Housing Stability Answer Date Recorded What is your housing situation today? I have manuel lincoln 06/21/[address] you li ve. Do you have problems with any of the following? None of the above 06/21/2024 Food Insecurity Answer Date Recorded Within the past 12 months, y ou worried that your food would run out before you got money to buy more: Sometimes True 2024 Within the past 12 months,th e food you bought just didn't last and you didn't have enough money to get more: Sometimes True 06/21/2024 Transportation Answer Date Recorded In the past 12 months, has l ack of transportation kept you from medical appts, meetings, work or from getting things needed for daily living? No 06/21/2024 Utilities Answer Date Recorded In the past 12 months, has t he electric, gas, oil or water company threatened to shut off services in your home? No 06/21/2024 Depression Answer Date Recorded Patient Health Questionnaire-2 Score 2 10/15/2022 Internet Access Answer Date Recorded Internet Access Q1 Yes 06/21/2024 Internet Access Q2 Not on file 06/21/2024 Comments Unknown Sex and Gender Information Value Date Recorded Sex Assigned at Female 01/12/2022 10:18 AM EDT Legal Sex Female 10:18 AM EDT Gender Identity Female 01/12/2022 10:18 AM EDT Sexual Orientation Straight 01/12/2022 10 :18 AM EDT documented as of this encounter Plan of Treatment Upcoming Encounters Date Type Department Care Team ([facility] st Contact Info) Description 07/25/2024 10:40 AM EDT Procedure Visit [facility] [address] [place] [address] Ariadna Joy MD [address] [place] [address] documented as of this encounter Visit Diagnoses Not on filedocumented in this encounter Additional Health Concerns Assessment Noted Time PHQ-9 Depression Total Score: 2 10/16/19 23 10:18 AM EDT documented as of this encounter Care Teams Port Captain Relationship Specialty Start Date End Date Doug Cardona MD [address] [place] [address] PCP - General Internal Medicine 02/03/12 documented as of this encounter
--- OUTSIDE RECORDS SUMMARY | 2024-06-30 10:31 | XMS_ITS | Encounter Summary ---
Author Organization [employer] Address [address] [place] [address] [address] [place] [address] Care Team Providers Care Regulatory Law Specialist Name Role Phone Ryan Cardona MD Primary Care Provider [phone]- [phone] Reason for Referral * Imaging (Routine) - Authorized Specialty Diagnoses / Procedures Referred By Contac t Referred To Contact Radiology Diagnoses Annual physical exam Procedures BI Mammogram Screening Tomosynthesis Bilateral Ryan Cardona MD [address] [place] [address] Phone: tel: fax: [address] Phone: tel: fax: Referral ID Status Reason Start Date Expiration Date V isits Requested Visits Authorized [id number] Authorized 06/29/2024 06/29/2025 1 1 Reason for Visit * Reason Comments Annual Exam Encounter Details Date Type Department Care Team ([facility] st Contact Info) Description 06/29/2024 10:45 AM EDT Office Visit [facility] [address] [place] [address] Ryan Cardona MD [address] [place] [address] Annual physical exam (Primary Dx); Screening for colon cancer; Dysplasia of cervix; Primary hypertension; Smoking addiction; Constipation, unspecified constipation type Social History Tobacco Use Types Packs/Day Years Used Date Smoking Tobacco: Every Day Cigarettes 0.5 33 Tobacco Cessation:Ready to Q uit: No; Counseling Given: Not Answered Alcohol Use Standard Drinks/Week Comments Defer 0 [...] AM EDT documented as of this encounter Last Filed Vital Signs Vital Sign Reading Time Taken Comments Blood Pressure 132/78 06/29/2024 10:00 AM EDT Pulse 70 06/29/2024 10:00 AM EDT Temperature 36.6 ??C (97.8 ??F) 06/29/2024 10:00 AM E DT Respiratory Rate 20 06/29/2024 10:00 AM EDT Oxygen Saturation - - Inhaled Oxygen Concentration - - Weight 71.9 kg (158 lb 9.6 oz) 06/29/2024 10:00 AM EDT Height 154.9 cm (5' 1 ) 06/29/2024 10:00 AM EDT Body Mass Index 29.97 06/29/2024 10:00 AM EDT documented in this encounter Progress Notes * Ryan Cardona MD - 06/29/2024 10:45 AM EDT Subjective Patient ID: Magalis [place] is a 53 y.o. female who presents for Annual Exam. HPI 1)currently grieving. Her mother and at the end of her life, the mother was very demanding. Ms Magalis [place] had to call crisis at some point. No reported SI/HI during the evaluation. 2) active smoker. Pt is not ready yet to quit smoking 3)Ho Endometriosis. 4) c/o alternating constipation and diarrhea for several years. 5) h/o depression. Pt is on sertraline. patient has not been able to follow-up on a regular basis with her psych provider during the sickness of her mother. She might need to get her medication prescribed by primary care. Patient Active Problem List Diagnosis Chronic obstructive lung disease (CMS/HCC) Dysplasia of cervix Endometriosis of uterus High blood pressure Migraine Ureterolithiasis Current Outpatient Medications on File Prior to Visit Medication Sig Dispense Refill albuterol (ProAir HFA) 108 (90 Base) MCG/ACT inhaler inhale 2 puff by inhalation route every 4 to 6hours as needed cyclobenzaprine (Flexeril) 10 MG tablet Take 1 tablet (10 mg) by mouth 3 times daily for 10 days. 30 tablet 0 sertraline (Zoloft) 25 MG tablet Take 1 tablet by mouth at bed time. tamsulosin (Flomax) 0.4 MG 24 hr capsule TAKE 1 CAPSULE BY MOUTH EVERY DAY IN THE MORNING 90 capsule 0 No current facility-administered medications on file prior to visit. Review of Systems Constitutional: Negative for appetite change, chills and diaphoresis. Eyes: Negative for photophobia, pain and redness. Objective BP 132/78 (BP Location: Left arm, Patient Position: Sitting, BP Cuff Size: Adult) Pulse 70 Temp97.8 ??F (36.6 ??C) (Oral) Resp 20 Ht 5' 1 (1.549 m) Wt 158 lb 9.6 oz (71.9 kg) BMI 29.97 kg/m?? Physical Exam Constitutional: General: She is not in acute distress. Appearance: Normal appearance. She is not ill-appearing, toxic-appearing or diaphoretic. HENT: Mouth/Throat: Pharynx: Oropharynx is clear. Tonsils: No tonsillar exudate or tonsillar abscesses. Comments: Edentulous Cardiovascular: Rate and Rhythm: Normal rate. Heart sounds: No murmur heard. No friction rub. No gallop. Abdominal: General: Abdomen is flat. Palpations: Abdomen is soft. Musculoskeletal: Cervical back: Normal range of motion. Skin: General: Skin is warm. Neurological: General: No focal deficit present. Mental Status: She is alert. Psychiatric: Mood and Affect: Mood normal. Assessment/Plan Diagnoses and all orders for this visit: Annual physical exam Comments: Patient is to maintain a healthy and balanced diet Gynecologic exam to schedule Mammo to schedule Orders: - BI Mammogram Screening Tomosynthesis Bilateral; Future - CBC auto differential; Future - Comprehensive Metabolic Panel; Future - Lipid Panel, Standard; Future - Hepatitis C Antibody with Reflex to HCV, RNA, Quantitative, Real-Time PCR; Future - TSH W/Reflex to FT4; Future - Vitamin D, 25-Hydroxy, Total, Immunoassay; Future - Vitamin B12/Folate, Serum Panel; Future Screening for colon cancer - Cologuard?? colon cancer screening; Future Dysplasia of cervix Comments: Lost to follow-up because of the sickness of her mother Patient needs a gynecological exam as soon as possible. Primary hypertension Comments: BP is at goal No acute intervention today DASH diet recommended. Smoking addiction Comments: Smoking cessation recommended Patient declines help today. documented in this encounter Miscellaneous Notes * Addendum Note - Ryan Cardona MD - 06/29/2024 10:45 AM EDTAddended by: RYAN CARDONA on: 06/29/2024 11:13 AM Modules accepted: Orders documented in this encounter Plan of Treatment Upcoming Encounters Date Type Department Care Team (Late st Contact Info) Description 07/25/2024 10:40 AM EDT Procedure Visit [facility] [address] [place] [address] Ariadna Joy MD [address] [place] [address] Scheduled Orders Name Type Priority Associated Diagnoses Orde r Schedule BI Mammogram Screening Tomosynthesis Bilateral Imaging Routine Annual physical exam Expected: 06/29/2024, Expires: 08/29/2025 CBC auto differential Lab Routine Annual physical exam Expected: 06/29/2024 (Approximate), Expires: 06/29/2025 Comprehensive Metabolic Panel Lab Routine Annual physical exam Expected: 06/29/2024 (Approximate), Expires: 06/29/2025 Lipid Panel, Standard Lab Routine Annual physical exam Expected: 06/29/2024 (Approximate), Expires: 06/29/2025 Hepatitis C Antibody with Reflex to HCV, RNA, Quantitative, Real-Time PCR Lab Routine Annual physical exam Expected: 06/29/2024, Expires: 06/29/2025 TSH W/Reflex to FT4 Lab Routine Annual physical exam Expected: 06/29/2024 (Approximate), Expires: 06/29/2025 Vitamin D, 25-Hydroxy, Total, Immunoassay Lab Routine Annual physical exam Expected: 06/29/2024 (Approximate), Expires: 06/29/2025 Vitamin B12/Folate, Serum Panel Lab Routine Annual physical exam Expected: 06/29/2024, Expires: 06/29/2025 Cologuard?? colon cancer screening Lab Routine Screening for colon cancer Expected: 06/29/2024 (Approximate), Expires: 06/29/2025 documented as of this encounter Visit Diagnoses Diagnosis Annual physical exam- Primary Routine general medical examination at a health care facility Screening for colon cancer Special screening for malignant neoplasms, colon Dysplasia of cervix Dysplasia of cervix, unspecified Primary hypertension Unspecified essential hypertension Smoking addiction Constipation, unspecified constipation type documented in this encounter Additional Health Concerns Assessment Noted Time PHQ-9 Depression Total Score: 2 10/16/19 23 10:18 AM EDT documented as of this encounter Care Teams Regulatory Law Specialist Relationship Specialty Start Date End Date Ryan Cardona MD [address] [place] [id number] PCP - General Internal Medicine 02/03/12 documented as of this encounter
--- OUTSIDE RECORDS SUMMARY | 2024-06-30 10:31 | XMS_ITS | Clinical Summary ---
Author Organization [employer] Address [address] [place] [address] [address] [place] [address] Care Team Providers Care Pantry Goods Maker Name Role Phone Doug Cardona MD Primary Care Provider Allergies Active Allergy Reactions Criticality Noted Date Comments Acetaminophen High 11/23/2011 Other reaction(s): TRIGGERS MIGRAINES & UPSET STOMACH Hydrocodone High 11/23/2011 Other reaction(s): TRIGGERS MIGRAINES & UPSET STOMACH Hydrocodone-Acetaminophen Unknown 09/18/2021 Oxycodone Itching High 11/23/2011 Medications albuterol (ProAir HFA) 108 (90 Base) MCG/ACT inhaler inhale 2 puff by inhalation route every 4 to 6 hours as needed 1 Active sertraline (Zoloft) 25 MG tablet Take 1 tablet by mouth at bed time. 1 01/30/20 25 Active tamsulosin (Flomax) 0.4 MG 24 hr capsule TAKE 1 CAPSULE BY MOUTH EVERY DAY IN THE MORNING 90 capsule 3 Active cyclobenzaprine (Flexeril) 10 MG tablet Take 1 tablet (10 mg) by mouth 3 times daily for 10 days. 30 tablet 5 Active psyllium (Metamucil 4 in 1 Fiber) 43 % powderIndications :Constipation, unspecified constipation type Take 6.98 g (3 g of fiber) by mouth 2 times daily. 538 g 11 5 06/30/19 26 Active Active Problems Problem Noted Date Diagnosed Date Ureterolithiasis 10/15/2022 Chronic obstructive lung disease 09/16/2020 Endometriosis of uterus 02/28/2016 High blood pressure 04/10/2013 Dysplasia of cervix 12/05/2012 Migraine 12/05/2012 Encounters Date Type Department Care Team Description 06/29/2024 10:45 AM EDT Office Visit [facility] [address] [place] [address] Doug Cardona MD Annual physical exam (Primary Dx); Screening for colon cancer; Dysplasia of cervix; Primary hypertension; Smoking addiction; Constipation, unspecified constipation type 06/29/2024 Travel 06/21/2024 Patient Outreach [facility] [address] [place] [address] Doug Cardona MD Pre-visit Planning (SDOH screening positive and Tobacco screening negative) 05/26/2024 Population Health Risk Score [facility] () Department [address] [place] [id number] Provider, Population Health Generic 04/27/2024 4:00 PM EST Office Visit [facility] [address] [place] [address] Lan Talavera MD Muscle spasm (Primary Dx); Frequency of urination 04/27/2024 Travel 04/26/2024 Telephone [facility] [address] [place] [address] Doug Cardona MD Nurse Triage from Last 3 Months Immunizations Name Administration Dates Next Due Influenza, Split (incl. purified surface antigen ) 11/23/2011 Pfizer Covid-19 Vaccine 12+ 12/18/2020, Tdap 06/21/2017,08/18/2006 Social History Tobacco Use Types Packs/Day Years [...] Orientation Straight 01/12/2022 10 :18 AM EDT Last Filed Vital Signs Vital Sign Reading Time Taken Comments Blood Pressure 132/78 06/29/2024 10:00 AM EDT Pulse 70 06/29/2024 10:00 AM EDT Temperature 36.6 ??C (97.8 ??F) 06/29/2024 10:00 AM E DT Respiratory Rate 20 06/29/2024 10:00 AM EDT Oxygen Saturation 97% 10/15/2022 10:14 AM EDT Inhaled Oxygen Concentration - - Weight 71.9 kg (158 lb 9.6 oz) 06/29/2024 10:00 AM EDT Height 154.9 cm (5' 1 ) 06/29/2024 10:00 AM EDT Body Mass Index 29.97 06/29/2024 10:00 AM EDT Plan of Treatment Upcoming Encounters Date Type Department Care Team (Late st Contact Info) Description 07/25/2024 10:40 AM EDT Procedure Visit [facility] [address] [place] [address] Ariadna Joy MD [address] [place] [address] Health Maintenance Due Date Last Done Comments CT Colonography 1972 Colonoscopy 1972 Colorectal Cancer Screening 1972 FIT DNA/Cologuard 1972 FIT 1972 FOBT 1972 HIV Screening 1972 Lipid Panel 1972 Sigmoidoscopy 1972 Alcohol/Substance Use Screening 1984 Family Planning (PISQ) 10/18/1987 Hepatitis C Screening 1990 Hepatitis B Vaccines (1 of 3 - 19+ 3-dose series) 10/18/1991 Pneumococcal Vaccine: 50+ Years (1 of 2 - PCV) 10/18/1991 Pap Smear 1993 Mammogram 04/20/2020 04/20/2018, 10/06/2017 Cervical Cancer Screening 02/24/2021 HPV/Cotest 02/24/2021 02/25/2016 Zoster Vaccines (1 of 2) 2022 Depression Screening 10/16/2023 10/15/2022, 10/15/2022 COVID-19 Vaccine (3 - 2023-2 5 season) 2023 12/18/2020, 11/26/2020 Influenza Vaccine (#1) 2023 11/23/2011 SDOH Screening 06/21/2025 06/21/2024 Tobacco Screening 06/29/2025 06/29/2024 DTaP/Tdap/Td Vaccines (4 - T d or Tdap) 05/27/2033 05/28/2023, 06/21/2017, 08/18/2006 RSV Patients and Patients Aged 60 years or older (1 - 1-dose 75+ series) 10/18/2047 HIB Vaccines Aged Out No longer eligi ble based on patient's age to complete this topic HPV Vaccines Aged Out No longer eligi ble based on patient's age to complete this topic Hepatitis A Vaccines Aged Out No long er eligible based on patient's age to complete this topic IPV Vaccines Aged Out No longer eligi ble based on patient's age to complete this topic Meningococcal Vaccine Aged Out No robinson jennifer eligible based on patient's age to complete this topic RSV under 20 months Aged Out No longe r eligible based on patient's age to complete this topic Rotavirus Vaccines Aged Out No longer eligible based on patient's age to complete this topic Procedures Procedure Name Priority Date/Time Associated Diagnosis Comments POCT URINALYSIS DIPSTICK Routine 04/27/2024 4:29 PM EST Frequency of urination BI MAMMOGRAM DIAGNOSTIC BILATERAL Routine 04/20/2018 12:06 PM EST ZZZ HISTORICAL HPV MRNA E6/E7 Routine 02/25/2016 1:40 PM EST from Last 3 Months or Most Recently Relevant to Health Maintenance Results * POCT Urinalysis (04/27/2024 4:29 PM EST) Color, UA Yellow Clarity, UA Clear Glucose, UA Negative Bilirubin, UA Negative Ketones, UA Positive Comment:trace Spec Grav, UA 1.025 Blood, UA Negative Negative, None Detected pH, UA 5.0 Protein, UA Negative Urobilinogen, UA 0.2 Leukocytes, UA Negative Negative, Rare, Trace Nitrite, UA Negative Negative, None Detected Appearance, UA clear QC Media Lot # [id number] Lot# Expiration Date Urine 04/27/2024 4:29 PM EST us Lan Marques MD POINT OF CARE TEST ENTER/EDIT ORDERABLES Final Result * 3D BILATERAL DIAGN MAMMO 1 (04/20/2018 12:06 PM EST) Anatomical Region Laterality Modality Breast Bilateral Mammography 04/20/2018 12:0 6 PM EST Narrative 04/20/2018 12:08 PM EST Refer to the Notes tab for result details [facility] Procedure: 3D BILATERAL DIAGN MAMMO 1 Procedure Note Provider, MD Martir - 06/06/2022 Refer to the Notes tab for result details [facility] Procedure: 3D BILATERAL DIAGN MAMMO 1 us Doug Cardona MD IMG BI PROCEDURES Final Res ult * HPV mRNA E6/E7 (02/25/2016 1:40 PM EST) HPV mRNA E6/E7 Not Detected NOT DETECTED [facility] Comment: This test was performed using the APTIMA(R) HPV Assay ([employer] This assay detects E6/E7 viral messenger RNA (mRNA) from 14 high-risk HPV types (16,18,31,33,35,39,45,51, 52,56,58,59,66,68). For additional information please refer to: http://education.EdCourage/faq/SDQ975q4 (This link is being provided for informational/ educational purposes only.) Test Performed by [employer], [employer] [facility], [address] [place] [address] Cal Blanco M.D., Ph.D., Director of Laboratories , [facility] [id number] Please note: ??Effective 11/25/2015, HPV testing will be performed using [employer]'s APTIMA test which targets mRNA. Detecting mRNA instead of DNA, as in older methods, offers significant improvements in specificity. 02/25/2016 1:40 PM EST us Alissa Dunne CNM HISTORICAL/NON ORDERABLE LABS Final Result [facility] [address] from Last 3 Months or Most Recently Relevant to Health Maintenance Insurance [employer] Care Teams Pantry Goods Maker Relationship Specialty Start Date End Date Doug Cardona MD [address] [place] [id number] PCP - General Internal Medicine 02/03/12
[2024-06-30 14:28] LABS: MANUAL DIFF FLAG NO
[2024-06-30 14:34] LABS: Basophils Absolute Auto 0.1 X10*3/uL (0.0-0.2); Eosinophils Absolute Auto 0.4 X10*3/uL (0.0-0.4); Eosinophils Percent Auto 6.4 % (0-4); Hemoglobin 15.2 g/dl (12.0-16.0); Imm Gran Abs Auto 0.01 X10*3/uL (0.00-0.03); Imm Gran Pct Auto 0.2 % (0.0-0.4); Lymphocytes Percent Auto 32.5 % (20-40); Mean Corpuscular Hemoglobin 29.1 pg (27.0-33.0); Mean Platelet Volume 11.6 fL (9.4-12.3); Monocytes Absolute Auto 0.4 X10*3/uL (0.1-1.2); Monocytes Percent Auto 6.7 % (2-11); Neutrophils Absolute Auto 3.3 x10*3/uL (2.0-8.3); Neutrophils Percent Auto 53.2 % (45-73); Platelet Count 302 X10*3/uL (160-400); Red Blood Count 5.23 X10*6/uL (4.20-5.50); Red Cell Distribution Width 14.4 % (11.0-16.0); White Blood Count 6.1 X10*3/uL (4.8-10.8)
[2024-06-30 15:23] LABS: Folate 7.5 ng/mL (> or = 4.0); Vitamin B12 415 pg/mL (200-900)
[2024-06-30 15:34] LABS: Alanine Aminotransferase 19 U/L (0-31); Albumin Level 4.6 g/dL (3.5-5.0); Anion Gap 13 (12-20); Aspartate Amino Transferase 22 U/L (5-31); Bilirubin Total 0.4 mg/dL (0.0-1.0); Blood Urea Nitrogen 13 mg/dL (9-16); Calcium 9.7 mg/dL (8.4-10.2); Carbon Dioxide 24 mmol/L (22-29); Chloride 108 mmol/L (96-108); Cholesterol 248 mg/dL (<200); Estimated Glomerular Filt Rate > 60; Glucose Random 104 mg/dL (60-115); HDL Cholesterol 69 mg/dL (>40); LDL Cholesterol Calculated 161 mg/dL (<100); Potassium 4.2 mmol/L (3.3-5.1); Sodium 141 mmol/L (135-145); TSH reflex Free T4 2.53 uIU/mL (0.32-4.0); Total Protein 7.9 g/dL (6.5-8.0); Triglycerides 94 mg/dL (<150); Vitamin D 25-OH Total 64.4 ng/mL (>30)
[2024-06-30 19:12] LABS: Alkaline Phosphatase 96 U/L (39-117)
[2024-07-01 08:12] LABS: ~HepC Num1 0.19 S/CO (0.00-0.79); ~Hepatitis C Antibody Nonreactive (Nonreactive)
== END 2024-06-30 09:51 | disposition home or self-care (01) ==
LOC: HO.CHCLDS 09:50
PROVIDERS: Visit Provider Internal Medicine
DX: Z00.00 Encounter for general adult medical examination without abnormal findings (principal)
CPT/HCPCS: 36415; 80053; 80061; 82306; 82607; 82746; 84443; 85025; 86803

== ENCOUNTER 2024-07-25 14:09 | Outpatient (REF) | payer MEDICAID, SELFPAY ==
--- OUTSIDE RECORDS SUMMARY | 2024-07-25 15:21 | XMS_ITS | Encounter Summary ---
Author Organization [employer] Address [address] [facility] 7t [place] [address] Care Team Providers Care Liquor Department Manager Name Role Phone Doug Cardona MD Primary Care Provider [phone] Encounter Details Date Type Department Care Team (Latest Contact Info) Description 07/25/2024 Travel Social History Tobacco Use Types Packs/Day Years Used Date Smoking Tobacco: Every Day Cigarettes 0.5 33 Alcohol Use Standard Drinks/Week Comments Never 0 (1 standard drink = 0.6 oz [...] Access Q2 Not on file 06/21/2024 Comments No Sex and Gender Information Value Date Recorded Sex Assigned at Female 01/12/2022 10:18 AM EDT Legal Sex Female 10:18 AM EDT Gender Identity Female 01/12/2022 10:18 AM EDT Sexual Orientation Straight 01/12/2022 10 :18 AM EDT documented as of this encounter Plan of Treatment Not on file documented as of this encounter Visit Diagnoses Not on filedocumented in this encounter Additional Health Concerns Assessment Noted Time PHQ-9 Depression Total Score: 2 10/16/19 23 10:18 AM EDT documented as of this encounter Care Teams Liquor Department Manager Relationship Specialty Start Date End Date Doug Cardona MD [address] [place] [id number] PCP - General Internal Medicine 02/03/12 documented as of this encounter
--- OUTSIDE RECORDS SUMMARY | 2024-07-25 15:22 | XMS_ITS | Clinical Summary ---
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 Name Role Phone Doug Cardona MD Primary Care Provider Allergies Active Allergy Reactions Criticality Noted Date Comments Acetaminophen High 11/23/2011 Other reaction(s): TRIGGERS MIGRAINES & UPSET STOMACH Hydrocodone High 11/23/2011 Other reaction(s): TRIGGERS MIGRAINES & UPSET STOMACH Hydrocodone-Acetaminophen Unknown 09/18/2021 Hydrocodone-Ibuprofen Unknown 09/18/2021 Oxycodone Itching High 11/23/2011 Oxycodone-Acetaminophen 07/25/2024 Medications albuterol (ProAir HFA) 108 (90 Base) [...] 538 g 11 5 06/30/19 26 Active nicotine (Nicoderm CQ) 21 MG/24HR patchIndications: Nicotine use disorder Place 1 patch on the skin 1 (one) time each day at the same time. 42 patch 5 Active nicotine (Nicoderm CQ) 14 MG/24HR patchIndications: Nicotine use disorder Place 1 patch on the skin 1 (one) time each day at the same time for 14 days. 14 patch 5 08/09/19 25 Active nicotine (Nicoderm CQ) 7 MG/24HR patchIndications: Nicotine use disorder Place 1 patch on the skin 1 (one) time each day at the same time. 14 patch 5 Active Active Problems Problem Noted Date Diagnosed Date Ureterolithiasis 10/15/2022 Chronic obstructive lung disease 09/16/2020 Endometriosis of uterus 02/28/2016 High blood pressure 04/10/2013 Dysplasia of cervix 12/05/2012 Assessment & Plan (07/25/2024 11:01 AM EDT): Diagnosed prior to 2006, treated with cryotherapy, cone biopsy & laser unable to review records ( will scan records found in Care Everywhere from 2006 & 2007), last pap smear in system was in 2015 and only able to review HPV w/o cytology which was negative. At this point, will proceed with yearly pap smears x 3, if normal then proceed with every 3 years for 25 years. Migraine 12/05/2012 Encounters Date Type Department Care Team Description 07/25/2024 10:40 AM EDT Procedure Visit [facility] [address] [place] [address] Ariadna Joy MD Nicotine use disorder (Primary Dx); Cervical cancer screening; Dysplasia of cervix 07/25/2024 Travel 07/05/2024 Telephone [facility] [address] [place] [address] Doug Cardona MD Results 06/29/2024 10:45 AM EDT Office Visit [facility] [address] [place] [address] Doug Cardona MD Annual physical exam (Primary Dx); Screening for colon cancer; Dysplasia of cervix; Primary hypertension; Smoking addiction; Constipation, unspecified constipation type 06/29/2024 Travel 06/21/2024 Patient Outreach [facility] [address] [place] [address] Doug Cardona MD Pre-visit Planning (SDOH screening positive and Tobacco screening negative) 05/26/2024 Population Health Risk Score [facility] () Department [address] [place] [phone] Provider, Population Health Generic 04/27/2024 4:00 PM EST Office Visit [facility]EDS [address] [place] [address] Lan Talavera MD Muscle spasm (Primary Dx); Frequency of urination 04/27/2024 Travel from Last 3 Months Immunizations Name Administration Dates Next Due Influenza, Split (incl. nadine fied surface antigen) 11/23/2011 Pfizer Covid-19 Vaccine 12+ 12/18/2020, Tdap 05/28/2023,06/21/2017,08/18/2006 Family History Medical History Relation Name Comments Migraines Father COPD Mother Diabetes Mother Heart disease Mother Kidney disease Mother Relation Name Status Comments Father Mother Social History Tobacco Use Types Packs/Day Years Used Date Smoking Tobacco: Every Day Cigarettes 0.5 33 Tobacco Cessation:Ready to Q uit: No; Counseling Given: Not Answered Alcohol Use Standard Drinks/Week Comments Never 0 [...] Sign Reading Time Taken Comments Blood Pressure 126/76 07/25/2024 10:28 AM EDT Pulse 76 07/25/2024 10:28 AM EDT Temperature 36.6 ??C (97.8 ??F) 07/25/2024 10:28 AM E DT Respiratory Rate 20 07/25/2024 10:28 AM EDT Oxygen Saturation 97% 10/15/2022 10:14 AM EDT Inhaled Oxygen Concentration - - Weight 77.6 kg (171 lb) 07/25/2024 10:28 AM EDT Height 157 cm (5' 1.81 ) 07/25/2024 10:28 AM EDT Body Mass Index 31.47 07/25/2024 10:28 AM EDT Plan of Treatment Health Maintenance Due Date Last Done Comments CT Colonography 1972 Colonoscopy 1972 FIT 1972 FOBT 1972 HIV Screening 1972 Sigmoidoscopy 1972 Alcohol/Substance Use Screening 1984 Family Planning (PISQ) 10/18/1987 Hepatitis B Vaccines (1 of 3 - [...] 11/23/2011 SDOH Screening 06/21/2025 06/21/2024 Tobacco Screening 07/25/2025 07/25/2024 Colorectal Cancer Screening 07/06/2027 FIT DNA/Cologuard 07/06/2027 07/05/2024 Lipid Panel 06/30/2029 06/30/2024 DTaP/Tdap/Td Vaccines (4 - T d or Tdap) 05/27/2033 05/28/2023, 06/21/2017, 08/18/2006 RSV Patients and Patients Aged 60 years or older (1 - 1-dose 75+ series) 10/18/2047 Hepatitis C Screening Completed 06/30/2024 HIB Vaccines Aged Out No longer eligi [...] Procedure Name Priority Date/Time Associated Diagnosis Comments LAB COLOGUARD?? COLON CANCER SCREEN Routine 07/05/2024 7:24 AM EDT Screening for colon cancer VITAMIN B12/FOLATE, SERUM PANEL Routine 06/30/2024 9:53 AM EDT Annual physical exam VITAMIN D,25-OH,TOTAL,IA Routine 06/30/2024 9:53 AM EDT Annual physical exam TSH W/REFLEX TO FT4 Routine 06/30/2024 9 :53 AM EDT Annual physical exam HEPATITIS C AB W/REFL TO HCV RNA, QN, PCR Routine 06/30/2024 9:53 AM EDT Annual physical exam LIPID PANEL, STANDARD Routine 06/30/2024 9:53 AM EDT Annual physical exam COMPREHENSIVE METABOLIC PANEL Routine 06/30/2024 9:53 AM EDT Annual physical exam CBC WITH AUTO DIFFERENTIAL Routine 06/30/2024 9:53 AM EDT Annual physical exam POCT URINALYSIS DIPSTICK Routine 04/27/2024 4:29 PM EST Frequency of urination BI MAMMOGRAM DIAGNOSTIC BILATERAL Routine 04/20/2018 12:06 PM EST ZZZ HISTORICAL HPV MRNA E6/E7 Routine 02/25/2016 1:40 PM EST from Last 3 Months or Most Recently Relevant to Health Maintenance Results * Cologuard?? colon cancer screening (07/05/2024 7:24 AM EDT) Cologuard Result Negative Negative 07/16/19 25 5:10 AM EDT [facility] (CLIA #:[id number]) Comment: The Cologuard (TM) test was performed on this specimen. NEGATIVE TEST RESULT. A negative Cologuard result indicates a low likelihood that a colorectal cancer (CRC) or advanced adenoma (adenomatous polyps with more advanced pre-malignant features) is present. The chance that a person with a negative Cologuard test has a colorectal cancer is less than 1 in 1500 (negative predictive value >99.9%) or has an advanced adenoma is less than 5.3% (negative predictive value 94.7%). These data are based on a prospective cross-sectional study of 10,000 individuals at average risk for colorectal cancer who were screened with both Cologuard and colonoscopy. (Kit Loco et al, N Engl J Med 2014;370(14):1286- 1297) The normal value (reference range) for this assay is negative. COLOGUARD RE-SCREENING RECOMMENDATION: Periodic colorectal cancer screening is an important part of preventive healthcare for asymptomatic individuals at average risk for colorectal cancer. Following a negative Cologuard result, the British Cancer Society and U.S. Multi-Society Task Force screening guidelines recommend a Cologuard re-screening interval of 3 years. References: British Cancer Society Guideline for Colorectal Cancer Screening: https://www.cancer.org/cancer/cnyzy-pqiyoj-utecut/kgapqbnys-mzxscrgkz-qjncztz/ac s-rec ommendations.html.; Nithin DK, Isaias CR, Teodoro GrecoK, Colorectal Cancer Screening: Recommendations for Physicians and Patients from the U.S. Multi-Society Task Force on Colorectal Cancer Screening , Am J Gastroenterology 2017; 112:1326-8120. TEST DESCRIPTION: Composite algorithmic analysis of stool DNA-biomarkers with hemoglobin immunoassay. ?? Quantitative values of individual biomarkers are not reportable and are not associated with individual biomarker result reference ranges. Cologuard is intended for colorectal cancer screening of adults of either sex, 45 years or older, who are at average-risk for colorectal cancer (CRC). Cologuard has been approved for use by the U.S. FDA. The performance of Cologuard was established in a cross sectional study of average-risk adults aged 50-84. Cologuard performance in patients ages 45 to 49 years was estimated by sub-group analysis of near-age groups. Colonoscopies performed for a positive result may find as the most clinically significant lesion: colorectal cancer [4.0%], advanced adenoma (including sessile serrated polyps greater than or equal to 1cm diameter) [20%] or non- advanced adenoma [31%]; or no colorectal neoplasia [45%]. These estimates are derived from a prospective cross-sectional screening study of 10,000 individuals at average risk for colorectal cancer who were screened with both Cologuard and colonoscopy. (Kit Panchal al, N Engl J Med 2014;370(14):8686-6848.) Cologuard may produce a false negative or false positive result (no colorectal cancer or precancerous polyp present at colonoscopy follow up). A negative Cologuard test result does not guarantee the absence of CRC or advanced adenoma (pre-cancer). The current Cologuard screening interval is every 3 years. (British Cancer Society and U.S. Multi-Society Task Force). Cologuard performance data in a 10,000 patient pivotal study using colonoscopy as the reference method can be accessed at the following location: www.[employer].Wimba/results. Additional description of the Cologuard test process, warnings and precautions can be found at www.[employer].com. Stool specimen (specimen) 07/05/2024 7:24 AM EDT 07/07/2024 12:47 PM EDT us Doug Cardona MD LAB MOLECULAR DIAGNOSTICS O RDERABLES Final Result [facility] (CLIA #:[id number]) [address] [place] [address], * Vitamin D, 25-Hydroxy, Total, Immunoassay (06/30/2024 9:53 AM EDT) Vitamin D 25-OH Total 64.4 >30 ng/mL [facility] Comment: Health Based Reference Values*< 20 ??ng/mL ??Uwrukaevz19-56 ng/mL ??Insufficient> 30 ??ng/mL ??Sufficient*Deepak NORMAN. N Engl J Med. 2007;357:266-280There is no well-established upper level of normal vitamin Dlevels. Some laboratories use 50 ng/mL as an upper limit ofnormal. However, toxicity is patient-dependent and may occurat any level. Careful correlation with the patient'spresentation is necessary and, if there is concern forvitamin D toxicity, treatment should be consideredirrespective of the serum level.Care must be taken in interpreting Vitamin D results fromdifferent laboratories and methodologies. ??Published datademonstrated that results from patients undergoinghemodialysis may show a negative bias when tested withvarious automated 25-OH vitamin D assays when compared toLC- MS/MS.When testing samples from patients whose predominant form ofVitamin D is Vitamin D2, such as patients receiving VitaminD2 supplementation, results that are subtherapeutic shouldbe confirmed with another method such as LC-MS/MS. Blood Venous blood specimen / Unknown 06/30/2024 9:53 AM EDT 06/30/2024 2:24 PM EDT us Doug Cardona MD LAB BLOOD ORDERABLES Final Result Performing Organization Address City/[facility]/ZIP Co de Phone Number [facility] [address] [place] [phone] * Vitamin B12/Folate, Serum Panel (06/30/2024 9:53 AM EDT) Vitamin B12 415 200 - 900 pg/mL [facility] Comment:NORMAL 200-900 PG/ML INDETERMINATE 160-199 PG/ML DEFICIENT < 160 PG/ML Folate 7.5 > or = 4.0 ng/mL [facility] Comment:Reference Values:> o r = 4.0 ng/mL< 4.0 ng/mL suggests folate deficiency Methotrexate, aminopterin and folinic acid(leucovorin) are chemotherapeutic agents whose molecularstructures are similar to folate; therefore, the Architectfolate assay cannot be used for patients using these drugs. Blood Venous blood specimen / Unknown 06/30/2024 9:53 AM EDT 06/30/2024 2:24 PM EDT us Doug Cardona MD LAB BLOOD ORDERABLES Final Result Performing Organization Address City/[facility]/ZIP Co de Phone Number [facility] [address] [place] [phone] * TSH W/Reflex to FT4 (06/30/2024 9:53 AM EDT) TSH reflex Free T4 2.53 0.32 - 4.0 uIU/mL [facility] Blood Venous blood specimen / Unknown 06/30/2024 9:53 AM EDT 06/30/2024 2:24 PM EDT us Doug Cardona MD LAB BLOOD ORDERABLES Final Result [facility] [address] [place] [phone] * (ABNORMAL) CBC auto differential (06/30/2024 9:53 AM EDT) White Blood Count 6.1 4.8 - 10.8 X10*3/uL [facility] Red Blood Count 5.23 4.20 - 5.50 X10*6/uL [facility] Hemoglobin 15.2 12.0 - 16.0 g/dl [facility] Hematocrit 46.0 37.0 - 47.0 % [facility] Mean Corpuscular Volume 88.0 80.0 - 98.0 fL [facility] Mean Corpuscular Hemoglobin 29.1 27.0 - 33.0 pg [facility] Mean Corpuscular HGB Conc 33.0 31.0 - 35.0 g/dl [facility] Red Cell Distribution Width 14.4 11.0 - 16.0 % [facility] Platelet Count 302 160 - 400 X10*3/uL [facility] Mean Platelet Volume 11.6 9.4 - 12.3 fL [facility] Neutrophils Percent Auto 53.2 45 - 73 % [facility] Imm Gran Pct Auto 0.2 0.0 - 0.4 % [facility] Lymphocytes Percent Auto 32.5 20 - 40 % [facility] Monocytes Percent Auto 6.7 2 - 11 % [facility] Eosinophils Percent Auto 6.4(H) 0 - 4 % [facility] Basophils Percent Auto 1.0 0 - 2 % [facility] NRBC Pct Auto 0.0 0.0 - 0.2 /100WBC [facility] Neutrophils Absolute Auto 3.3 2.0 - 8.3 x10*3/uL [facility] Imm Gran Abs Auto 0.01 0.00 - 0.03 X10*3/uL [facility] Lymphocytes Absolute Auto 2.0 1.2 - 4.9 X10*3/uL [facility] Monocytes Absolute Auto 0.4 0.1 - 1.2 X10*3/uL [facility] Eosinophils Absolute Auto 0.4 0.0 - 0.4 X10*3/uL [facility] Basophils Absolute Auto 0.1 0.0 - 0.2 X10*3/uL [facility] NRBC Abs Auto 0.000 0.0 - 0.012 X10*3/uL [facility] Blood Venous blood specimen / Unknown 06/30/2024 9:53 AM EDT 06/30/2024 2:24 PM EDT us Doug Cardona MD LAB BLOOD ORDERABLES Final Result Performing Organization Address [facility]/ZIP Co de Phone Number [facility] [address] [place] [phone] * Hepatitis C Antibody with Reflex to HCV, RNA, Quantitative, Real-Time PCR (06/30/2024 9:53 AM EDT) Hepatitis C Antibody Nonreactive Nonreactive [facility] Comment:Antibodies to HCV no t detected; does not exclude early acuteHCV infection. Blood Venous blood specimen / Unknown 06/30/2024 9:53 AM EDT 06/30/2024 2:24 PM EDT us Doug Cardona MD LAB BLOOD ORDERABLES Final Result Performing Organization Address City/[facility]/ZIP Co de Phone Number [facility] [address] [place] [phone] * (ABNORMAL) Lipid Panel, Standard (06/30/2024 9:53 AM EDT) Triglycerides 94 <150 mg/dL [facility] Comment:Desirable Triglyceri de: less than 150 mg/dLBorderline High Triglyceride 150-199 mg/dLHigh Triglyceride: 200-499 mg/dLVery High Triglyceride: greater than or equal to 5OO mg/dL Cholesterol 248(H) <200 mg/dL [facility] Comment:Desirable Cholestero l: less than 200 mg/dLBorderline High Cholesterol: 200-239 mg/dLHigh Cholesterol: greater than 239 mg/dL LDL Cholesterol Calculated 161(H) <100 mg/dL [facility] Comment:Desirable LDL: less than 100 mg/dLNear Optimal/Above Optimal LDL: 110- 129 mg/dLBorderline High LDL: 130-159 mg/dLHigh LDL: 160-189 mg/dLVery High LDL: greater than or equal to 190 mg/dL HDL Cholesterol 69 >40 mg/dL [facility] Comment:Desirable HDL: great er than 40 mg/dL Note: This HDL assay may give artificially low results in patients with liver disease. Blood Venous blood specimen / Unknown 06/30/2024 9:53 AM EDT 06/30/2024 2:24 PM EDT us Doug Cardona MD LAB BLOOD ORDERABLES Final Result [facility] [address] [place] [phone] * Comprehensive Metabolic Panel (06/30/2024 9:53 AM EDT) Sodium 141 135 - 145 mmol/L [facility] Potassium 4.2 3.3 - 5.1 mmol/L [facility] Chloride 108 96 - 108 mmol/L [facility] Carbon Dioxide 24 22 - 29 mmol/L [facility] Anion Gap 13 12 - 20 [facility] Urea Nitrogen (BUN) 13 9 - 16 mg/dL [facility] Creatinine, Serum 0.73 0.5 - 1.4 mg/dL [facility] Estimated Glomerular Filt Rate >60 [facility] Comment:Chronic Kidney Disea se: Estimated GFR < 60 mL/min/1.29l1Nvdprm Kidney Disease: Estimated GFR < 15 mL/min/1.73m2 Glucose 104 60 - 115 mg/dL [facility] Calcium 9.7 8.4 - 10.2 mg/dL [facility] Bilirubin, Total 0.4 0.0 - 1.0 mg/dL [facility] Aspartate Amino Transferase 22 5 - 31 U/L [facility] Alanine Aminotransferase 19 0 - 31 U/L [facility] Total Protein 7.9 6.5 - 8.0 g/dL [facility] Albumin Level 4.6 3.5 - 5.0 g/dL [facility] Alkaline Phosphatase 96 39 - 117 U/L [facility] Blood Venous blood specimen / Unknown 06/30/2024 9:53 AM EDT 06/30/2024 2:24 PM EDT us Doug Cardona MD LAB BLOOD ORDERABLES Final Result [facility] [address] [place] [phone] * POCT Urinalysis (04/27/2024 4:29 PM EST) [...] HPV mRNA E6/E7 Not Detected NOT DETECTED [facility] Comment: This test was performed using the APTIMA(R) HPV Assay ([employer] This assay detects E6/E7 viral messenger RNA (mRNA) from 14 high-risk HPV types (16,18,31,33,35,39,45,51, 52,56,58,59,66,68). For additional information please refer to: http://[employer].picsell/faq/LQZ898y4 (This link is being provided for informational/ educational purposes only.) Test Performed by [employer], [facility], [address] [place] [address] Cal Blanco M.D., Ph.D., Director of Laboratories , [facility] [id number] Please note: ??Effective 11/25/2015, HPV testing will be performed using [facility]'s APTIMA test which targets mRNA. Detecting mRNA instead of DNA, as in older methods, offers significant improvements in specificity. 02/25/2016 1:40 PM EST us Alissa Dunne CNM HISTORICAL/NON ORDERABLE LABS Final Result [facility] [address] from Last 3 Months or Most Recently Relevant to Health Maintenance Insurance [facility] C3 Care Teams Postal Transportation Clerk Relationship Specialty Start Date End Date Doug Cardona MD [address] [place] [phone] PCP - General Internal Medicine 02/03/12
--- OUTSIDE RECORDS SUMMARY | 2024-07-25 15:22 | XMS_ITS | Encounter Summary ---
Author Organization [email or web address] Address [address] [facility] [address]t [place] [address] Care Team Providers Care Second Cutter Name Role Phone Doug Cardona MD Primary Care Provider [phone] Reason for Referral * Consultation (Routine) - Authorized Specialty Diagnoses / Procedures Referred By Contac t Referred To Contact Pharmacy Diagnoses Nicotine use disorder Ariadna Joy MD [address] [place] [address] Phone: tel: fax: Referral ID Status Reason Start Date Expiration Date Visits Requested Visits Authorized [id number] Authorized Consult and Treat 07/25/2024 07/25/2025 1 1 Reason for Visit * Reason Comments Cervical Cancer Screening Encounter Details Date Type Department Care Team (Latest Contact Info) Description 07/25/2024 10:40 AM EDT Procedure Visit [facility] [address] [place] [address] Ariadna Joy MD [address] [place] [address] Nicotine use disorder (Primary Dx); Cervical cancer screening; Dysplasia of cervix Social History Tobacco Use Types Packs/Day Years [...] 20 07/25/2024 10:28 AM EDT Oxygen Saturation - - Inhaled Oxygen Concentration - - Weight 77.6 kg (171 lb) 07/25/2024 10:28 AM EDT Height 157 cm (5' 1.81 ) 07/25/2024 10:28 AM EDT Body Mass Index 31.47 07/25/2024 10:28 AM EDT documented in this encounter Progress Notes * Ariadna Joy MD - 07/25/2024 10:40 AM EDT Images from the original note were not included. Subjective Patient ID: Magalis Dixon is a 53 y.o. female who presents for Cervical Cancer Screening. 53 y.o. female here for annual well woman preventive exam. LMP: No LMP recorded (lmp unknown). (Menstrual status: Other). Sexual activity: Social History Substance and Sexual Activity Sexual activity: Not Currently control/protection: Female Sterilization intention: BC method: Smoking hx: Tobacco Use: High Risk (07/25/2024) Tobacco Smoking Tobacco Use: Every Day Smokeless Tobacco Use: Unknown Passive Exposure: Not on file Alcohol use hx: Social History Substance and Sexual Activity Alcohol use: Never OBHx: # 1 - Date: None, Sex: None, Weight: None, GA: None, Type: None, Apgar1: None, Apgar5: None, Living: None, Comments: None # 2 - Date: None, Sex: Male, Weight: None, GA: None, Type: , Low Transverse, Apgar1: None,Apgar5: None, Living: Living, Comments: Born with gastroschisis # 3 - Date: None, Sex: None, Weight: None, GA: None, Type: None, Apgar1: None, Apgar5: None, Living: None, Comments: None IPV: Denies IPV Reviewed family hx Review of patient's family history indicates: Problem: Heart disease Relation: Mother Name: Age of Onset: (Not Specified) Problem: COPD Relation: Mother Name: Age of Onset: (Not Specified) Problem: Diabetes Relation: Mother Name: Age of Onset: (Not Specified) Problem: Kidney disease Relation: Mother Name: Age of Onset: (Not Specified) Problem: Migraines Relation: Father Name: Age of Onset: (Not Specified) Health Maintenance: No results found for: HMPAP , HMMAMMO , HMCOLON Review of Systems Constitutional: Negative for appetite change, fatigue and fever. HENT: Negative for congestion, postnasal drip and rhinorrhea. Eyes: Negative for discharge and redness. Respiratory: Negative for apnea, cough, chest tightness and shortness of breath. Cardiovascular: Negative for chest pain. Gastrointestinal: Negative for abdominal pain. Endocrine: Negative for polyphagia. Genitourinary: Negative for difficulty urinating, dysuria and urgency. Musculoskeletal: Negative for arthralgias. Neurological: Negative for dizziness, light-headedness, numbness and headaches. Hematological: Negative for adenopathy. Does not bruise/bleed easily. Objective Visit Vitals BP 126/76 (BP Location: Right arm, Patient Position: Sitting, BP Cuff Size: Large adult) Pulse 76 Temp 97.8 ??F (36.6 ??C) (Oral) Resp 20 Ht 5' 1.81 (1.57 m) Wt 171 lb (77.6 kg) LMP (LMP Unknown) BMI 31.47 kg/m?? OB Status Other Smoking Status Every Day BSA 1.84 m?? Physical Exam Vitals reviewed. Exam conducted with a settlement worker present. Constitutional: General: She is not in acute distress. Appearance: She is obese. She is not ill-appearing. HENT: Head: Normocephalic and atraumatic. Nose: No congestion. Pulmonary: Effort: Pulmonary effort is normal. No respiratory distress. Breath sounds: Normal breath sounds. Chest: Chest wall: No deformity, tenderness or crepitus. Breasts: Breasts are symmetrical. Right: Normal. No inverted nipple, mass, nipple discharge, skin change or tenderness. Left: Normal. No inverted nipple, mass, nipple discharge, skin change or tenderness. Genitourinary: Urethra: No prolapse. Vagina: Normal. Cervix: Normal. Rectum: Normal. Comments: Scarring from episiotomy Pale cervix with areas of red dots Musculoskeletal: Cervical back: Normal range of motion. Lymphadenopathy: Upper Body: Right upper body: No supraclavicular, axillary or pectoral adenopathy. Left upper body: No supraclavicular, axillary or pectoral adenopathy. Neurological: General: No focal deficit present. Mental Status: She is alert. Psychiatric: Mood and Affect: Mood normal. Assessment/Plan Problem List Items Addressed This Visit Dysplasia of cervix Diagnosed prior to 2006, treated with cryotherapy, cone biopsy & laser unable to review records( will scan records found in Care Everywhere from 2006 & 2007), last pap smear in system was [id number] and only able to review HPV w/o cytology which was negative. At this point, will proceed with yearly pap smears x 3, if normal then proceed with every 3 years for 25 years. Relevant Orders Pap Smear HPV High Risk with Reflex to Subtypes STI testing add on (NG, CT, Trich) Other Visit Diagnoses Nicotine use disorder - Primary Relevant Medications nicotine (Nicoderm CQ) 21 MG/24HR patch nicotine (Nicoderm CQ) 14 MG/24HR patch nicotine (Nicoderm CQ) 7 MG/24HR patch Other Relevant Orders Referral to Pharmacy Smoking Cessation Program Cervical cancer screening Relevant Orders Pap Smear HPV High Risk with Reflex to Subtypes STI testing add on (NG, CT, Trich) documented in this encounter Miscellaneous Notes * Assessment & Plan Note - Ariadna Joy MD - 07/25/2024 10:55 AM EDT Associated Problem(s): Dysplasia of cervix Diagnosed prior to 2006, treated with cryotherapy, cone biopsy & laser unable to review records( will scan records found in Care Everywhere from 2006 & 2007), last pap smear in system was [id number] and only able to review HPV w/o cytology which was negative. At this point, will proceed with yearly pap smears x 3, if normal then proceed with every 3 years for 25 years. documented in this encounter Plan of Treatment Scheduled Orders Name Type Priority Associated Diagnoses Orde r Schedule Pap Smear Pathology and Cytology Routine Cervical cancer screening Dysplasia of cervix Ordered: 07/25/2024 HPV High Risk with Reflex to Subtypes Lab Routine Cervical cancer screening Dysplasia of cervix Ordered: 07/25/2024 STI testing add on (NG, CT, Trich) Pathology and Cytology Routine Cervical cancer screening Dysplasia of cervix Ordered: 07/25/2024 Scheduled Referrals Name Type Priority Associated Diagnoses Orde r Schedule Referral to Pharmacy Smoking Cessation Program Outpatient Referral Routine Nicotine use disorder Expected: 07/25/2024 (Approximate), Expires: 07/25/2025 documented as of this encounter Visit Diagnoses Diagnosis Nicotine use disorder- Primary Tobacco use disorder Cervical cancer screening Screening for malignant neoplasm of the cervix Dysplasia of cervix Dysplasia of cervix, unspecified documented in this encounter Additional Health Concerns Assessment Noted Time PHQ-9 Depression Total Score: 2 10/16/19 23 10:18 AM EDT documented as of this encounter Care Teams Second Cutter Relationship Specialty Start Date End Date Doug Cardona MD [address] [place] [id number] PCP - General Internal Medicine 02/03/12 documented as of this encounter
--- OUTSIDE RECORDS SUMMARY | 2024-07-25 15:22 | XMS_ITS | Encounter Summary ---
Author Organization [employer] Address [address] [facility] 7t [place] [address] Care Team Providers Care Channeler Name Role Phone Doug Cardona MD Primary Care Provider [phone] Reason for Visit * Reason Onset Date Comments Nurse Triage 04/26/2024 Encounter Details Date Type Department Care Team ([facility] st Contact Info) Description 04/26/[address] [facility] MEDICINE [address] [place] [address] Doug Cardona MD [address] [place] [address] Nurse Triage Social History Tobacco Use Types [...] documented in this encounter Plan of Treatment Not on file documented as of this encounter Visit Diagnoses Not on filedocumented in this encounter Additional Health Concerns Assessment Noted Time PHQ-9 Depression Total Score: 2 10/16/19 23 10:18 AM EDT documented as of this encounter Care Teams Channeler Relationship Specialty Start Date End Date Doug Cardona MD [address] [place] [id number] PCP - General Internal Medicine 02/03/12 documented as of this encounter
[2024-07-27 20:48] LABS: C. trachomatis RNA TMA NOT DETECTED (NOT DETECTED); N. gonorrhoeae RNA TMA NOT DETECTED (NOT DETECTED); Trichomonas (NAAT) NOT DETECTED (NOT DETECTED)
[2024-07-28 15:19] LABS: HPV Genotype 16 Negative (Negative); HPV Genotype 18 Negative (Negative); HPV High Risk Negative (Negative)
== END 2024-07-25 14:10 | disposition home or self-care (01) ==
LOC: HO.CHCLNP 14:09
PROVIDERS: Visit Provider Family Medicine
DX: N87.9 Dysplasia of cervix uteri, unspecified (principal); Z12.4 Encounter for screening for malignant neoplasm of cervix
CPT/HCPCS: 87491; 87591; 87626; 87661; 88175

== ENCOUNTER 2025-03-05 18:19 | Outpatient (REF) | payer MEDICAID, SELFPAY ==
--- OUTSIDE RECORDS SUMMARY | 2025-03-05 16:00 | XMS_ITS | Encounter Summary ---
Author Organization [employer] Address [address] [facility] 7t [place] [address] Care Team Providers Care Taxi Servicer Name Role Phone Doug Cardona MD Primary Care Provider [phone]- [phone] Reason for Referral * Imaging (Urgent) - Pending Review Specialty Diagnoses / Procedures Referred By Contac t Referred To Contact Radiology Diagnoses Urinary tract infection symptoms Other microscopic hematuria Procedures US RENAL BI Doug Cardona MD [address] [place] [address] Phone: tel: fax: Referral ID Status Reason Start Date Expiration Date V isits Requested Visits Authorized [id number] Pending Review 03/05/2025 03/05/2026 1 1 Reason for Visit * Reason Comments Urinary Symptom Encounter Details Date Type Department Care Team ([facility] Contact Info) Description 03/05/2025 4:00 PM EST Office Visit [facility] MED & PEDS [address] [place] [address] Doug Cardona MD [address] [place] [address] Urinary tract infection symptoms (Primary Dx); Other microscopic hematuria; Muscle spasm; Dislocation of left shoulder joint, initial encounter Social History Tobacco Use Types Packs/Day Years Used Date Smoking Tobacco: Every Day Cigarettes 0.5 33 Alcohol Use Standard Drinks/Week Comments Never 0 (1 standard drink = 0.6 oz pur e alcohol) Depression Answer Date Recorded Patient Health Questionnaire-9 Score 6 11/02/2024 Patient Health Questionnaire-9 Score 6 11/02/2024 Last PHQ-9: Questionnaire Data Not on file 0 11/02/2024 Housing Stability Answer Date Recorded What is [...] got money to buy more: Never True 11/02/2024 Within the past 12 months,th e food [...] Answer Date Recorded Patient Health Questionnaire-2 Score 3 11/02/2024 Internet Access Answer Date Recorded Internet Access [...] Sign Reading Time Taken Comments Blood Pressure 144/73 03/05/2025 4:13 PM EST Pulse 66 03/05/2025 4:13 PM EST Temperature - - Respiratory Rate 20 03/05/2025 4:13 PM EST Oxygen Saturation 98% 03/05/2025 4:13 PM EST Inhaled Oxygen Concentration - - Weight 76.7 kg (169 lb) 03/05/2025 4:13 PM EST Height 154.9 cm (5' 1 ) 03/05/2025 4:13 PM EST Body Mass Index 31.93 03/05/2025 4:13 PM EST documented in this encounter Progress Notes * Doug Cardona MD - 03/05/2025 4:00 PM EST SUBJECTIVE Magalis Dixon is a 54 y.o. female who presents for Urinary Symptom. HPI The note from triage was reviewed: TC to pt to triage for urinary concerns, nausea. Pt states that over the last few days she has been experiencing urinary symptoms including dysuria, bladder pressure and right sided kidney pain. Pt unable to pinpoint if pain is in kidney or lower in bladder. Pt has a history or UTI, bladder and kidney infections. Pt reports she was vomiting yesterday but has not yet today. Denies fevers as well. Pt states the pressure is the worst symptom at the moment, states she is rocking back and forth to help with feeling of needing to urinate. Pt requesting to be seen to rule out infection. Pt scheduled for 4 pm on 03/05/25 with PCP. Pt agrees to plan. Two days h/o frequency, Nausea, 3 episodes of vomiting, pelvic pain . No fever. Today feels pressure of the right lower abdomen. Multiple episodes prior to that one. Problem List[1] Allergies[2] Medications Ordered Prior to Encounter[3] Review of Systems Constitutional: Negative for chills, diaphoresis and fatigue. Respiratory: Negative for cough, choking and shortness of breath. Genitourinary: Positive for dysuria, frequency and pelvic pain. Negative for vaginal discharge. Skin: Negative for pallor. OBJECTIVE There were no vitals filed for this visit. Physical Exam Constitutional: General: She is not in acute distress. Appearance: Normal appearance. She is not ill-appearing, toxic-appearing or diaphoretic. Pulmonary: Effort: Pulmonary effort is normal. Abdominal: Tenderness: There is abdominal tenderness. Neurological: General: No focal deficit present. Mental Status: She is alert. Psychiatric: Mood and Affect: Mood normal. Assessment/Plan Assessment/Plan Diagnoses and all orders for this visit: Urinary tract infection symptoms Comments: Presence of blood in the urine Urine culture sent. Advised to push fluids. US of the kidney ordered. Orders: - nitrofurantoin, macrocrystal-monohydrate, (Macrobid) 100 MG capsule; Take 1 capsule (100 mg) by mouth 2 times daily for 5 days. - phenazopyridine (Pyridium) 200 MG tablet; Take 1 tablet (200 mg) by mouth if needed in the morning, at noon, and at bedtime for bladder spasms for up to 3 days. - US RENAL BI; Future Other microscopic hematuria - US RENAL BI; Future Muscle spasm - ibuprofen 600 MG tablet; Take 1 tablet (600 mg) by mouth 3 times daily. Dislocation of left shoulder joint, initial encounter Comments: Improved Pt needs Ibuprofen to control her night discomfort Advised to continue w/ PT as scheduled. Orders: - ibuprofen 600 MG tablet; Take 1 tablet (600 mg) by mouth 3 times daily. [1] Patient Active Problem List Diagnosis Chronic obstructive lung disease (HCC) Dysplasia of cervix Endometriosis of uterus High blood pressure Migraine Ureterolithiasis [2] Allergies Allergen Reactions Acetaminophen Other reaction(s): TRIGGERS MIGRAINES & UPSET STOMACH Hydrocodone Other reaction(s): TRIGGERS MIGRAINES & UPSET STOMACH Oxycodone Itching Hydrocodone-Acetaminophen Unknown Oxycodone-Acetaminophen [3] Current Outpatient Medications on File Prior to Visit Medication Sig Dispense Refill albuterol (ProAir HFA) 108 (90 Base) MCG/ACT inhaler inhale 2 puff by inhalation route every 4 to 6hours as needed amLODIPine (Norvasc) 5 MG tablet Take 1 tablet (5 mg) by mouth Once per day. 30 tablet 11 Blood Pressure kit Monitor blood pressure daily 1 kit 0 HYDROmorphone (Dilaudid) 2 MG tablet TAKE 1 TABLET BY MOUTH EVERY 4 HOURS NEEDED FOR 7 DAYS nicotine (Nicoderm CQ) 21 MG/24HR patch Place 1 patch on the skin 1 (one) time each day at the sametime. 28 patch 5 ondansetron ODT (Zofran-ODT) 4 MG disintegrating tablet DISSOLVE 1 TABLET ON TONGUE EVERY 8 HOURS FOR 7 DAYS FOR NAUSEA propranolol (Inderal) 10 MG tablet Take 10 mg by mouth Once per day. psyllium (Metamucil 4 in 1 Fiber) 43 % powder Take 6.98 g (3 g of fiber) by mouth 2 times daily. 538 g 11 senna (Senokot) 8.6 MG tablet Take 2 tablets by mouth Once per day. sertraline (Zoloft) 100 MG tablet Take 100 mg by mouth Once per day. No current facility-administered medications on file prior to visit. documented in this encounter Miscellaneous Notes * Addendum Note - Jordan Sagastume MA - 03/05/2025 4:00 PM ESTAddended by: JORDAN SAGASTUME on: 03/05/2025 04:35 PM Modules accepted: Orders documented in this encounter Plan of Treatment Upcoming Encounters Date Type Department Care Team (Late st Contact Info) Description 04/12/2025 1:00 PM EST Office Visit [facility] PED[facility] [address] [place] [address] Doug Cardona MD [address] [place] [address] 05/01/2025 11:00 AM EST Telemedicine [facility] [address] [place] [address] Maida Elder, PharmD [address] [place] [address] Scheduled Orders Name Type Priority Associated Diagnoses Orde r Schedule US RENAL BI Imaging Urgent Urinary tract infection symptoms Other microscopic hematuria Expected: 03/05/2025, Expires: 03/05/2026 Culture, Urine, Routine Microbiology Routine Urinary tract infection symptoms Expected: 03/05/2025 (Approximate), Expires: 03/05/2026 documented as of this encounter Procedures Procedure Name Priority Date/Time Associated Diagnosis Comments POCT URINALYSIS DIPSTICK Routine 03/05/2025 4:35 PM EST Urinary tract infection symptoms Other microscopic hematuria documented in this encounter Results * (ABNORMAL) POCT Urinalysis (03/05/2025 4:35 PM EST) Color, UA Jackson Clarity, UA Turbid Glucose, UA Negative Bilirubin, UA Negative Ketones, UA Positive Comment:trace Spec Grav, UA 1.020 Blood, UA Positive(A) Negative, None Detected Comment:moderate pH, UA 7.5 Protein, UA Negative Urobilinogen, UA 0.2 Leukocytes, UA Negative Negative, Rare, Trace, 1+ (17), 2+ (35), 3+ (70), Trace (15) Nitrite, UA Negative Negative, None Detected Appearance, UA turbid QC Media Lot # [id number] Lot# Expiration Date [id number] Urine (Urine, Random) 03/05/2025 4:35 PM EST Doug Cardona MD POINT OF CARE TEST ENTER/ED IT ORDERABLES Final Result documented in this encounter Visit Diagnoses Diagnosis Urinary tract infection symptoms- Primary Other microscopic hematuria Muscle spasm Spasm of muscle Dislocation of left shoulder joint, initial encounter documented in this encounter Additional Health Concerns Assessment Noted Time PHQ-9 Depression Total Score: 6 11/03/19 25 4:37 PM EDT documented as of this encounter Care Teams Taxi Servicer Relationship Specialty Start Date End Date Doug Cardona MD [address] [place] [id number] PCP - General Internal Medicine 02/03/12 documented as of this encounter
--- OUTSIDE RECORDS SUMMARY | 2025-03-05 19:04 | XMS_ITS | Encounter Summary ---
Author Organization [employer] Address [address] [facility] 7t [place] [address] Care Team Providers Care Director Of Recruiting Name Role Phone Doug Cardona MD Primary Care Provider [phone] Reason for Visit * Reason Onset Date Comments Nurse Triage 04/26/2024 Encounter Details Date Type Department Care Team ([facility] st Contact Info) Description 04/26/2024 Telephone [facility] MEDICINE [address] [place] [address] Doug Cadrona MD [address] [place] [address] Nurse Triage Social History Tobacco Use Types [...] Description 04/12/2025 1:00 PM EST Office Visit [facility] MED & PEDS [address] [place] [address] Doug Cardona MD [address] [place] [address] 05/01/2025 11:00 AM EST Telemedicine [facility] PED[facility] [address] [place] [address] Maida Elder, PharmD [address] [place] [address] documented as of this encounter Visit Diagnoses Not on filedocumented in this encounter Additional Health Concerns Assessment Noted Time PHQ-9 Depression Total Score: 2 10/16/19 23 10:18 AM EDT documented as of this encounter Care Teams Director Of Recruiting Relationship Specialty Start Date End Date Doug Cardona MD [address] [place] [address] PCP - General Internal Medicine 02/03/12 documented as of this encounter
--- OUTSIDE RECORDS SUMMARY | 2025-03-05 19:04 | XMS_ITS | Encounter Summary ---
Author Organization [employer] Address [address] [facility] 7t [place] [address] Care Team Providers Care Batch Still Operator Name Role Phone Doug Cardona MD Primary Care Provider [phone] Encounter Details Date Type Department Care Team (Latest Contact Info) Description 03/05/2025 Travel Social History Tobacco Use Types Packs/Day [...] Description 04/12/2025 1:00 PM EST Office Visit [facility] MED & PEDS [address] [place] [address] Doug Cardona MD [address] [place] [address] 05/01/2025 11:00 AM EST Telemedicine [facility] MED & PEDS [address] [place] [address] Maida Elder, PharmD [address] [place], [place] [phone] documented as of this encounter Visit Diagnoses Not on filedocumented in this encounter Additional Health Concerns Assessment Noted Time PHQ-9 Depression Total Score: 6 11/03/19 25 4:37 PM EDT documented as of this encounter Care Teams Batch Still Operator Relationship Specialty Start Date End Date Doug Cardona MD [address] [place] [address] PCP - General Internal Medicine 02/03/12 documented as of this encounter
--- OUTSIDE RECORDS SUMMARY | 2025-03-05 19:04 | XMS_ITS | Encounter Summary ---
Author Organization [employer] Address [address] [facility] 7t [place] [address] Care Team Providers Care Warp Trucker Name Role Phone Doug Cardona MD Primary Care Provider [phone] Encounter Details Date Type Department Care Team ([facility] st Contact Info) Description 03/05/2025 Orders Only [facility] MED & PEDS [address] [place], [place] [phone] Doug Cardona MD [address] [place], [place] [phone] Other microscopic hematuria (Primary Dx); Urinary tract infection symptoms Social History Tobacco Use Types Packs/Day Years [...] is your housing situation today? I have [place] 06/21/[address] you [...] AM EDT documented as of this encounter Progress Notes * Doug Cardona MD - 03/05/2025 4:31 PM EST urin documented in this encounter Plan of Treatment Upcoming Encounters Date Type Department Care Team (Late st Contact Info) Description 04/12/2025 1:00 PM EST Office Visit [facility] MED & PEDS [address] [place] [address] Doug Cardona MD [address] [place] [address] 05/01/2025 11:00 AM EST Telemedicine [facility] MED & PEDS [address] [place] [address] Maida Elder, PharmD [address] [place], [place] [phone] Scheduled Orders Name Type Priority Associated Diagnoses Orde r Schedule Culture, Urine, Routine Microbiology Routine Other microscopic hematuria Urinary tract infection symptoms Expected: 03/05/2025 (Approximate), Expires: 03/05/2026 documented as of this encounter Visit Diagnoses Diagnosis Other microscopic hematuria- Primary Urinary tract infection symptoms documented in this encounter Additional Health Concerns Assessment Noted Time PHQ-9 Depression Total Score: 6 11/03/19 25 4:37 PM EDT documented as of this encounter Care Teams Warp Trucker Relationship Specialty Start Date End Date Doug Cardona MD [address] [place] [address] PCP - General Internal Medicine 02/03/12 documented as of this encounter
--- OUTSIDE RECORDS SUMMARY | 2025-03-05 19:04 | XMS_ITS | Clinical Summary ---
Author Organization [employer] Address [address] [facility] [address] [place] [address] Care Team Providers Care Hardware Design Engineer Name Role Phone Doug Cardona MD Primary Care Provider [phone]- [phone] Allergies Active Allergy Reactions Criticality Noted Date Comments Acetaminophen High 11/23/2011 Other reaction(s): TRIGGERS MIGRAINES & UPSET STOMACH Hydrocodone High 11/23/2011 Other reaction(s): TRIGGERS MIGRAINES & UPSET STOMACH Hydrocodone-Acetaminophen Unknown 09/18/2021 Oxycodone Itching High 11/23/2011 Oxycodone-Acetaminophen 07/25/2024 Medications albuterol (ProAir HFA) 108 (90 Base) MCG/ACT inhaler inhale 2 puff by inhalation route every 4 to 6 hours as needed 1 Active psyllium (Metamucil 4 in 1 Fiber) 43 % powderIndications: Constipation, unspecified constipation type Take 6.98 g (3 g of fiber) by mouth 2 times daily. 538 g 11 5 026 Active ondansetron ODT (Zofran-ODT) 4 MG disintegrating tablet DISSOLVE 1 TABLET ON TONGUE EVERY 8 HOURS FOR 7 DAYS FOR NAUSEA 5 Active propranolol (Inderal) 10 MG tablet Take 10 mg by mouth Once per day. 5 Active sertraline (Zoloft) 100 MG tablet Take 100 mg by mouth Once per day. Active amLODIPine (Norvasc) 5 MG tabletIndications: Primary hypertension Take 1 tablet (5 mg) by mouth Once per day. 30 tablet 11 5 026 Active Blood Pressure kitIndications:Isatu garnett hypertension Monitor blood pressure daily 1 kit 5 Active HYDROmorphone (Dilaudid) 2 MG tablet TAKE 1 TABLET BY MOUTH EVERY 4 HOURS NEEDED FOR 7 DAYS 5 Active senna (Senokot) 8.6 MG tablet Take 2 tablets by mouth Once per day. 5 Active nicotine (Nicoderm CQ) 21 MG/24HR patchIndications:N icotine use disorder Place 1 patch on the skin 1 (one) time each day at the same time. 28 patch 5 5 Active nitrofurantoin, macrocrystal-monoh ydrate, (Macrobid) 100 MG capsuleIndications :Urinary tract infection symptoms Take 1 capsule (100 mg) by mouth 2 times daily for 5 days. 10 capsule 5 025 Active phenazopyridine (Pyridium) 200 MG tabletIndications: Urinary tract infection symptoms Take 1 tablet (200 mg) by mouth if needed in the morning, at noon, and at bedtime for bladder spasms for up to 3 days. 10 tablet 5 025 Active ibuprofen 600 MG tabletIndications: Muscle spasm,Dislocation of left shoulder joint, initial encounter Take 1 tablet (600 mg) by mouth 3 times daily. 90 tablet 5 026 Active Active Problems Problem Noted Date Diagnosed [...] Encounters Date Type Department Care Team Description 03/05/2025 4:00 PM EST Office Visit [facility] [address] [place] [address] Doug Cardona MD Urinary tract infection symptoms (Primary Dx); Other microscopic hematuria; Muscle spasm; Dislocation of left shoulder joint, initial encounter 03/05/2025 Orders Only [facility] [address] [place] [address] Doug Cardona MD Other microscopic hematuria (Primary Dx); Urinary tract infection symptoms 03/05/2025 Travel 03/05/[address] [address] Doug Cardona MD Nurse Triage 01/19/2025 Travel 01/16/2025 11:30 AM EST Telemedicine [facility] [address] [place] [address] Maida Elder PharmD Nicotine use disorder (Primary Dx) 01/16/2025 Travel 01/10/2025 Telephone [facility] [address] [place] [address] Doug Cardona MD 01/09/2025 3:30 PM EDT Office Visit [facility] [address] [place] [address] Doug Cardona MD Primary hypertension (Primary Dx); Dislocation of left shoulder joint, initial encounter; Dislocation of left elbow, initial encounter 01/09/2025 Travel 01/08/2025 Telephone [facility] [address] [place] [address] Doug Cardona MD Chart Prep 12/29/2024 Patient Outreach [address] [address] Doug Cardona MD Pre-visit Planning (SDOH screening completed on 11/02/24) 12/21/2024 Telephone [facility] [address] [place] [address] Doug Cardona MD Call Back Request 12/21/2024 Telephone [facility] [address] [place] [address] Doug Cardona MD Durable Medical Equipment 12/18/2024 1:00 PM EDT Office Visit [facility] [address] [place] [address] Doug Cardona MD Primary hypertension (Primary Dx); Dietary counseling; Exercise counseling; Class 1 obesity due to excess calories with serious comorbidity and body mass index (BMI) of 30.0 to 30.9 in adult; Dislocation of left shoulder joint, initial encounter; Dislocation of left elbow, initial encounter; Nicotine use disorder 12/18/2024 Travel 12/05/2024 11:30 AM EDT Telemedicine [facility] [address] [place] [address] Maida Elder PharmD Nicotine use disorder (Primary Dx) 12/05/2024 Travel from Last 3 Months Immunizations Immunization Administration Dates Next Due HepB-CpG 01/19/2025,09/12/2024 Influenza, Injectable, MDCK, preservative free 01/19/2025 Influenza, Split (incl. nadine fied surface antigen) 11/23/2011 Pfizer Covid-19 Vaccine 12+ 12/18/2020, Pneumococcal Conjugate PCV 20 09/12/2024 Tdap 05/28/2023,06/21/2017,08/18/2006 Family History Medical History Relation Name Comments Migraines Father COPD Mother Diabetes Mother Heart disease Mother Kidney disease Mother Relation Name Status Comments Father Mother Social History Tobacco Use Types Packs/Day Years Used Date Smoking Tobacco: Every Day Cigarettes 0.5 33 Tobacco Cessation:Ready to Q uit: Yes; Counseling Given: Yes Alcohol Use Standard Drinks/Week Comments Never 0 [...] Pulse 66 03/05/2025 4:13 PM EST Temperature 36.3 C (97.4 F) 01/09/2025 3:25 PM EDT Respiratory Rate 20 03/05/2025 4:13 PM EST Oxygen Saturation 98% 03/05/2025 4:13 PM EST Inhaled Oxygen Concentration - - Weight 76.7 kg (169 lb) 03/05/2025 4:13 PM EST Height 154.9 cm (5' 1 ) 03/05/2025 4:13 PM EST Body Mass Index 31.93 03/05/2025 4:13 PM EST Plan of Treatment Upcoming Encounters Date Type Department Care Team ([facility] st Contact Info) Description 04/12/2025 1:00 PM EST Office Visit [facility] [address] [place] [address] Doug Cardona MD [address] [place] [address] 05/01/2025 11:00 AM EST Telemedicine [facility] [address] [facility] [place] [address] Maida Elder, PharmD [address] [place] [address] Health Maintenance Due Date Last Done Comments CT Colonography 1972 Colonoscopy 1970 FIT 1970 HIV Screening 1970 Sigmoidoscopy 1970 Disability Screening 1970 Family Planning (PISQ) 10/18/1987 Mammogram 04/20/2020 04/20/2018, 10/06/2017 RSV Patients and Patients Aged 60 years or older (1 - Risk 50-74 years 1-dose series) 2022 Zoster Vaccines (1 of 2) 2022 COVID-19 Vaccine (3 - 2024-2 6 season) 2024 12/18/2020, 11/26/2020 FOBT 07/05/2025 07/05/2024 Alcohol/Substance Use Screening 11/02/2025 11/02/2024 Depression Screening 11/02/2025 11/02/2024, 11/02/2024 SDOH Screening 11/02/2025 11/02/2024 Tobacco Screening 03/05/2026 03/05/2025 Colorectal Cancer Screening 07/06/2027 FIT DNA/Cologuard 07/06/2027 07/05/2024 Pap Smear 07/26/2027 07/25/2024 Lipid Panel 06/30/2029 06/30/2024 Cervical Cancer Screening 07/25/2029 HPV/Cotest 07/25/2029 07/25/2024, 02/25/2016 DTaP/Tdap/Td Vaccines (4 - T d or Tdap) 05/27/2033 05/28/2023, 06/21/2017, 08/18/2006 Hepatitis C Screening Completed 06/30/2024 Pneumococcal Vaccine: 50+ Years Completed 09/12/2024 Hepatitis B Vaccines Completed 01/19/2025, 09/12/2024 Influenza Vaccine Completed 01/19/2025, 11/23/2011 HIB Vaccines Aged Out No longer eligi [...] patient's age to complete this topic Meningococcal B Vaccine Aged Out No l onger eligible based on patient's age to complete [...] Urinary tract infection symptoms Other microscopic hematuria HPV DNA, LOW/HIGH RISK Routine 07/25/2024 11:01 AM EDT Cervical cancer screening Dysplasia of cervix PAP SMEAR Routine 07/25/2024 11:01 AM EDT Cervical cancer screening Dysplasia of cervix LAB COLOGUARD COLON CANCER SCREEN Routine 07/05/2024 7:24 AM EDT Screening for colon cancer HEPATITIS C AB W/REFL TO HCV RNA, QN, PCR Routine 06/30/2024 9:53 AM EDT Annual physical exam LIPID PANEL, STANDARD Routine 06/30/2024 9:53 AM EDT Annual physical exam BI MAMMOGRAM DIAGNOSTIC BILATERAL Routine 04/20/2018 12:06 PM EST from Last 3 Months or Most Recently Relevant to Health Maintenance Results * (ABNORMAL) POCT Urinalysis (03/05/2025 4:35 PM EST) Color, UA Campbell Clarity, UA Turbid Glucose, UA Negative Bilirubin, [...] Media Lot # [id number] Lot# Expiration Date [id number] Urine (Urine, Random) 03/05/2025 4:35 PM EST us Doug Cardona MD POINT OF CARE TEST ENTER/ED IT ORDERABLES Final Result * HPV High Risk with Reflex to Subtypes (07/25/2024 11:01 AM EDT) HPV High Risk Negative Negative [facility] HPV Genotype 16 Negative Negative [facility] HPV Genotype 18 Negative Negative [facility] Comment:HPV testing performe d at [facility] (CLIA#[id number]), [address] [place] [phone].Testing for HPV was performed using the Holly JANINE 6800system. The presence of HPV in the female genital tract isassociated with a number of diseases, including cervicalcarcinoma. The HPV DNA high risk pool tests for HPV 31, 33,35, 39, 45, 51, 52, 56, 58, 59, 66 and 68. The testing forHPV 16 and 18 genotypes has also been performed. A positiveresult indicates detection of nucleic acid sequences fromone or more subtypes, whereas a negative result indicatessuch sequences were not detected. Pap Vial 07/25/2024 11:0 1 AM EDT 07/26/2024 9:12 AM EDT us Ariadna Joy MD LAB BLOOD ORDERABLES Final Re sult [facility] [address] [place] [phone] * Pap Smear (07/25/2024 11:01 AM EDT) Swab 07/25/2024 11:0 1 AM EDT 07/26/2024 9:12 AM EDT [facility] - 07/28/2024 9:10 AM EDT ----- ------- Name: Magalis Dixon Age/Sex: 53/F : 1970 Unit#: [id number] Attend Dr: Ariadna Joy MD Re07/25/24 Status: [facility] REF Location: .CHCLNP Disch: ----- ------- SPEC : [id number] RECD: 07/26/24 STATUS: DHAVAL SIDDIQI NUM: [id number] GABRIELLA: 07/25/24-1101 [facility] DR: Ariadna Joy MD ENTERED: 07/26/24 SP TYPE: Pap [facility] DR: ORDERED: Pap Smear Interpretation Satisfactory for evaluation. Negative for intraepithelial lesion or malignancy. No endocervical cells seen. HPV High Risk: Negative HPV Genotyping 16: Negative HPV Genotyping 18: Negative Clinical Information LMP: Unknown date Previous PAP test: Unknown date/findings Material Received ThinPrep-Cervical ----- ------- Signed (signature on file) Juni JOSUÉ Naylor (ASCP) 07/28/24 0910 ----- ------- END OF REPORT us Ariadna Joy MD LAB CYTOLOGY ORDERABLES Final Result [facility] [address] [place] [phone] * Cologuard?? colon cancer screening (07/05/2024 7:24 AM EDT) Cologuard Result Negative Negative 07/16/19 5:10 AM EDT [facility] (CLIA #:[id number]) Comment: The Cologuard (TM) test was performed [...] (Kit Panchal al, N Engl J Med 2014;370(14):1286- 1297) The normal value (reference range) for this assay is negative. COLOGUARD RE-SCREENING RECOMMENDATION: Periodic colorectal cancer screening is an important part of preventive healthcare for asymptomatic individuals at average risk for colorectal cancer. Following a negative Cologuard result, the [place] [employer] Society and U.S. Multi-Society Task Force screening guidelines recommend a Cologuard re-screening interval of 3 years. References: [place] [employer] Guideline for Colorectal Cancer Screening: https://www.cancer.org/cancer/umusy-xpsoul-emilgz/snxbtnvoq-wbzcmsfdg-rxicpwv/ac s-rec ommendations.html.; Nithin DK, Isaias GAYLE, Teodoro GrecoK, Colorectal Cancer Screening: Recommendations for Physicians and Patients from the U.S. Multi-Society Task Force on Colorectal Cancer Screening , Am J Gastroenterology 2017; 112:4347-3176. TEST DESCRIPTION: Composite algorithmic analysis of stool DNA-biomarkers with hemoglobin immunoassay. Quantitative values of individual biomarkers are not [...] (Kit Panchal al, N Engl J Med 2014;370(14):7882-1143.) Cologuard may produce a false negative or false positive result (no colorectal cancer or precancerous polyp present at colonoscopy follow up). A negative Cologuard test result does not guarantee the absence of CRC or advanced adenoma (pre-cancer). The current Cologuard screening interval is every 3 years. ([place] [employer] Society and U.S. Multi-Society Task Force). Cologuard performance data in a 10,000 patient pivotal study using colonoscopy as the reference method can be accessed at the following location: www.Bigbasket.com.Run2Sport/results. Additional description of the Cologuard test process, warnings and precautions can be found at www.colFluencrrd.com. Stool specimen (specimen) 07/05/2024 7:24 AM EDT 07/07/2024 12:47 PM EDT us Doug Cardona MD LAB MOLECULAR DIAGNOSTICS O RDERABLES Final Result Performing Organization Address City/[facility] Co de Phone Number [facility] (CLIA #:[id number]) [address] [place] [address], * Hepatitis C Antibody with Reflex to HCV, RNA, Quantitative, Real-Time PCR (06/30/2024 9:53 AM EDT) Pathologist [facility] Hepatitis C Antibody Nonreactive Nonreactive [facility] Comment:Antibodies to HCV no t detected; does not exclude early acuteHCV infection. Blood Venous blood specimen / Unknown 06/30/2024 9:53 AM EDT 06/30/2024 2:24 PM EDT us Doug Cardona MD LAB BLOOD ORDERABLES Final Result Performing Organization Address City/[facility] Co de Phone Number [facility] [address] [place] [phone] * (ABNORMAL) Lipid Panel, Standard (06/30/2024 9:53 AM EDT) Triglycerides 94 <150 mg/dL [facility] Comment:Desirable Triglyceri de: less than 150 mg/dLBorderline High Triglyceride 150-199 mg/dLHigh Triglyceride: 200-499 mg/dLVery High Triglyceride: greater than or equal to 5OO mg/dL Cholesterol 248(H) <200 mg/dL [facility] Comment:Desirable Cholestero l: less than 200 mg/dLBorderline High Cholesterol: 200-239 mg/dLHigh Cholesterol: greater than 239 mg/dL LDL Cholesterol Calculated 161(H) <100 mg/dL [facility] Comment:Desirable LDL: less than 100 mg/dLNear Optimal/Above Optimal LDL: 110- 129 mg/dLBorderline High LDL: 130-159 mg/dLHigh LDL: 160-189 mg/dLVery High LDL: greater than or equal to 190 mg/dL HDL Cholesterol 69 >40 mg/dL [facility] Comment:Desirable HDL: great er than 40 mg/dL Note: This HDL assay may give artificially low results in patients with liver disease. Blood Venous blood specimen / Unknown 06/30/2024 9:53 AM EDT 06/30/2024 2:24 PM EDT us Doug Cardona MD LAB BLOOD ORDERABLES Final Result Performing Organization Address City/State/[facility] Co de Phone Number [facility] [address] [place] [phone] * 3D BILATERAL DIAGN MAMMO 1 (04/20/2018 [...] MD IMG BI PROCEDURES Final Res ult from Last 3 Months or Most Recently Relevant to Health Maintenance [facility] Care Teams Hardware Design Engineer Relationship Specialty Start Date End Date Doug Cardona MD [address] [place] [phone] PCP - General Internal Medicine 02/03/12
--- OUTSIDE RECORDS SUMMARY | 2025-03-05 19:04 | XMS_ITS | Encounter Summary ---
Author Organization [employer] Address [address] [facility] 7[address] [place] [address] Care Team Providers Care Inclined Railway Operator Name Role Phone Doug Cardona MD Primary Care Provider [phone]- [phone] Reason for Visit * Reason Onset Date Comments Nurse Triage 03/05/2025 Encounter Details Date Type Department Care Team ([facility] st Contact Info) Description 03/05/2025 Telephone [facility] [address] [place] [address] Doug Cardona MD [address] [place] [address] Nurse Triage Social History Tobacco Use Types [...] encounter Miscellaneous Notes * Telephone Encounter - Shruthi Vasquez RN - 03/05/2025 2:32 PM EST TC to pt to triage for urinary concerns, nausea. Pt states that over the last few days she has beenexperiencing urinary symptoms including dysuria, bladder pressure and [...] be seen to rule out infection. Pt scheduledfor 4 pm on 03/05/25 with PCP. Pt agrees to plan. Protocol Used: Urinary Symptoms (Adult) Protocol-Based Disposition: See in Office or Video Visit Today Video visit offer not recorded Positive Triage Questions: * Side (flank) or lower back pain present * Urinating more frequently than usual (i.e., frequency) OR new-onset of the feeling of an urgent need to urinate (i.e., urgency) * Patient wants to be seen * Dribbling (losing urine) just after finishing urination (i.e., post-void dribbling) * All other urine symptoms * All higher-acuity triage questions were negative. Care Advice Discussed: * Reasons To Call Back - Fever occurs - Pain or burning with urination - You become worse * Telephone Encounter - Cynthia Bales - 03/05/2025 2:04 PM EST Tc from pt requesting a call back regarding prior message Contact at [phone] * Telephone Encounter - Sydni Hilliard RN - 03/05/2025 1:46 PM EST TC placed to patient [phone] regarding below message. RN left an VM for the patient to Nurse triage line. PT to F/U PRN. * Telephone Encounter - Neena Barboza - 03/05/2025 11:59 AM EST Symptoms: Nausea But No Vomiting, Urine Symptoms Outcome: Schedule a same-day appointment or talk to a nurse or provider today Reason: Caller denied all higher acuity questions The caller accepted this outcome. Contact pt at [phone] documented in this encounter Plan of Treatment Upcoming Encounters Date Type Department Care Team ([facility] st Contact Info) Description 04/12/2025 1:00 PM EST Office Visit [facility] [address] [place] [address] Doug Cardona MD [address] [place] [address] 05/01/2025 11:00 AM EST Telemedicine [facility] [address] [place] [address] Maida Elder, Norma [address] [place] [address] documented as of this encounter Visit Diagnoses Not on filedocumented in this encounter Additional Health Concerns Assessment Noted Time PHQ-9 Depression Total Score: 6 11/03/19 25 4:37 PM EDT documented as of this encounter Care Teams Inclined Railway Operator Relationship Specialty Start Date End Date Doug Cardona MD [address] [place] [phone] PCP - General Internal Medicine 02/03/12 documented as of this encounter
== END 2025-03-05 18:20 | disposition home or self-care (01) ==
LOC: HO.LNP 18:19
PROVIDERS: Visit Provider Internal Medicine
DX: R31.29 Other microscopic hematuria (principal); R39.9 Unspecified symptoms and signs involving the genitourinary system
CPT/HCPCS: 87086